=== PATIENT | male | born 1930 | race Caucasian/White ===

== ENCOUNTER 2017-04-18 01:11 | Observation (INO) | payer OTHER ==
--- NOTE | 2017-04-18 01:35 | EDPHY ---
H & P HPI/ROS: HPI CHIEF COMPLAINT: Dementia, having trouble keeping him in the house. HISTORY OF PRESENT ILLNESS: Patient very pleasant 86-year-old male, history of dementia, resides in a private residence with his , EMS was called to his residence as she was having a hard time keeping him in the house and from leaving. She thought that he may leave and get injured. She is not come to the emergency room however history is obtained by EMS. EMS reports he has no complaints. He has not been sick recently. He does have dementia. It sounds like the is having hard time controlling his behavior at home. There has not been any physical altercations. It is more of him leaving the house in the middle the night. Past Medical History: Ventricular tachycardia due to vaso spasm, syncope, AICD , dementia Past Surgical History: AICD Social History: Resides in a private residence with his . Family History: Noncontributory ROS REVIEW OF SYSTEMS: A comprehensive 10 point review of systems is otherwise negative aside from elements mentioned in the history of present illness. Exam Constitutional appears well nontoxic, no acute distress, stable vital signs, pleasant, triage nursing summary reviewed, vital signs reviewed, awake/alert. Eyes normal conjunctivae and sclera, EOMI, PERRLA. HENT normal inspection, atraumatic, moist mucus membranes, no epistaxis, neck supple/ no meningismus, no raccoon eyes. Respiratory clear to auscultation bilaterally, normal breath sounds, no respiratory distress, no wheezing. Cardiovascular rate normal, regular rhythm, no murmur, no edema, distal pulses normal. Gastrointestinal soft, non-tender, no rebound, no guarding, normal bowel sounds, no distension, no pulsatile mass. Genitourinary no CVA tenderness. Musculoskeletal no midline vertebral tenderness, full range of motion, no calf swelling, no tenderness of extremities, no meningismus, good pulses, neurovascularly intact. Skin pink, warm, & dry, no rash, skin atraumatic. Neurologic alert and orient x1, demented, moves all 4 extremities equally, motor intact, sensory intact, CN II-XII intact, normal cerebellar, normal vision , normal speech. Psychiatric normal mood/affect. Heme/Lymph/Immune no lymphadenopathy. Differential Diagnosis: Includes but is not limited to in a particular order dementia, behavioral issues, cognitive decline, electrolyte disturbance Medical Decision Making: Plan for this patient basic blood work, check a re- evaluate. Re-evaluation: 0214: Blood work has been reviewed is unremarkable. Electrolytes are appropriate. Patient acting appropriately follows, I commands. He is not aggressive. He does appear pleasantly demented. I will speak with his about possibly being discharged home unless she has other concerns. Have not found anything acute going on. Patient has what appears to be progressive dementia. 0248: Spoke with Dr. Delacruz, their primary care doctor. We discussed the case at length. We thought maybe a better idea increased his Zyprexa 5 mg at night. This may help to sleep. He was just recently started on Zyprexa I believe 2.5 mg. Patient will go home with the feels comfortable going home. His blood work is unremarkable. I will discuss length with her about returning home with him. Additionally discussed about Zyprexa. 0300: has come to the emergency room. She reports to me that she has a great deal difficulty controlling his behavior and he constantly wants to leave the house. She does not feel comfortable taking him home. Additionally the patient is not aware who she is. The reports that she thinks maybe this started Zyprexa is actually causing the change in his mental status. She is not sure if that we should increase his dose of Zyprexa. Will admit to the hospitalist service as she does not feel comfortable taking him home. Source: Patient, EMS - Personal History Tetanus Vaccine Date: <10 YRS - Medical/Surgical History Hx Asthma: No Hx Chronic Respiratory Disease: No Hx Diabetes: No Hx Cardiac Disease: Yes Hx Renal Disease: No Hx Cirrhosis: No Hx Alcoholism: No Hx HIV/AIDS: No Hx Splenectomy or Spleen Trauma: No Other PMH: Past medical history: Syncope, ventricular tachycardia, idiopathic anaphylaxis - Social History Smoking Status: Former smoker Constitutional: Initial Vital Signs Temperature (C) 36.4 C 04/18/17 01:17 Heart Rate 70 04/18/17 01:17 Respiratory Rate 16 04/18/17 01:17 Blood Pressure 157/93 H 04/18/17 01:17 O2 Sat (%) 94 04/18/17 01:17 O2 Delivery Mode Room Air Allergies/Adverse Reactions: latex [Latex] Allergy (Severe, Verified 04/18/17 01:19) Rash adhesive Allergy (Verified 01/16/18 01:19) Home Medications: Medication Instructions Recorded Tamsulosin HCl [Flomax 0.4 MG (*)] 0.4 mg PO DAILY 08/10/11 Aspirin [Aspirin 325 mg (*)] 325 mg PO DAILY 03/17/12 Multivitamins [Multivitamin (*)] 1 tab PO DAILY 03/17/12 Cholecalciferol Vit D3 [Vitamin D3 1,000 units PO DAILY 04/18/17 (*)] Herbals/Supplements -Info Only 1 ea PO DAILY 04/18/17 LORazepam [Ativan (*)] 0.5 mg PO DAILY PRN 04/18/17 Levothyroxine [Synthroid 88 mcg 88 mcg PO DAILY06 04/18/17 (*)] OLANZapine [Zyprexa] 5 mg PO HS #60 tablet 04/18/17 Venlafaxine Xr [Effexor Xr 37.5MG 37.5 mg PO BIDMEAL 04/18/17 (*)] Medical Decision Making - Data Points Laboratory Results: Laboratory Results 04/18/17 01:25 04/18/17 01:25 04/18/17 01:45 TSH 2.100 uIU/mL uIU/mL (0.465-4.680) Medications Given: Aspirin (Aspirin) 325 mg PO DAILY [facility] Stop: 10/15/17 12:29 Last Admin: 04/18/17 13:51 Dose: 325 mg Cholecalciferol (Vitamin D) 1,000 units PO DAILY [facility] Stop: 10/15/17 12:29 Last Admin: 04/18/17 13:51 Dose: 1,000 units Levothyroxine Sodium (Synthroid) 88 mcg PO DAILY06 [facility] Stop: 10/15/17 12:29 Last Admin: 04/18/17 13:51 Dose: 88 mcg Quetiapine Fumarate (Seroquel) 25 mg PO HS [facility] Stop: 10/15/17 20:59 Last Admin: 04/18/17 20:40 Dose: 25 mg Venlafaxine HCl (Effexor Xr) 37.5 mg PO BIDMEAL [facility] Stop: 10/15/17 17:59 Last Admin: 04/18/17 17:31 Dose: 37.5 mg Discontinued Medications Lorazepam (Ativan) 1 mg PO ONCE ONE Stop: 04/18/17 03:22 Last Admin: 04/18/17 03:37 Dose: 1 mg Departure - Departure Disposition: Home, Routine, Self-Care Clinical Impression: Dementia Qualifiers: Dementia type: unspecified type Dementia behavioral disturbance: without behavioral disturbance Qualified Code(s): F03.90 - Unspecified dementia without behavioral disturbance Condition: Good
[2017-04-18 01:37] LABS: PLATELET COUNT 214 10^3/uL (150-400)
[2017-04-18] MEDS ORDERED: ONDANSETRON 4 MG/2 ML VIAL IVP PRN (03:15)
[2017-04-18] MEDS ORDERED: ACETAMINOPHEN 325 MG TAB PO PRN (03:15)
[2017-04-18] MEDS ORDERED: LORazepam 1 MG TAB PO ONE (03:21)
[2017-04-18] MEDS ORDERED: LORazepam 1 MG TAB ONE (03:25)
--- NOTE | 2017-04-18 08:00 | GHP ---
[f rep st] HISTORY AND PHYSICAL DATE OF ADMISSION: 04/18/2017 SOURCE: Patient with significantly advanced dementia. He is unable to provide a significant history . Case is discussed with the ED provider. Prior to admission, the patient's had left for the e vening before I could arrive to the ER at bedside. CHIEF COMPLAINT: Dementia. HISTORY OF PRESENT ILLNESS: This is a very pleasant 86-year-old gentleman, who presents to the emerg ency department after his called 911. This evening, patient had some slightly increased confusi on, agitation and was trying to leave the house in the low freezing temperatures. The patient is in general of a larger stature and his is just 5 feet 4 inches. She had concerns that she is not a ble to maintain his safety and so patient was brought to the emergency department for further evaluat ion. The patient had progressively declining status with his dementia. 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 He was unable to identify his at bedside and called her the flight simulator teacher . He was able to report the name of his accurately as Georgette but is not able to identify her per the ED provider. The patient without any known recent illnesses. The patient has not had any a gitation since arrival to the emergency department. He has not attempted to leave the facility. He does ask multiple questions and is quite paranoid regarding the facility services and intentions. De spite being advised he is in the hospital, he does not recall the information for but a few moments. In the emergency department, ED provider did discuss with PCP regarding patient's case. Patient had been recently started on the low-dose Zyprexa at nighttime. The patient's had feared that this had increased his agitation; however, he has had a progressive decline in the progress of his disease . He has not been violent, but has been more difficult to redirect, and is concerned that [facility] home is no longer a viable option for the patient's safety. REVIEW OF SYSTEMS: The patient denies despite a thorough review of 10 systems. The patient does wea r glasses and again is not available at bedside for further discussion. ALLERGIES: Latex and adhesive. HOME MEDICATIONS: As per EMR, tamsulosin 0.4 mg p.o. daily, multivitamin 1 tab p.o. daily, levothyro xine 75 mcg p.o. daily, diltiazem 240 mg p.o. daily, Zyrtec 10 mg p.o. daily, calcium with vitamin D p.o. daily, aspirin 325 mg p.o. daily, Zyprexa 5 mg p.o. at nighttime. PAST MEDICAL HISTORY: Significant for dementia, history of ventricular tachycardia placement with th e ICD, and history of idiopathic anaphylaxis. PAST SURGICAL HISTORY: Significant for AICD placement. FAMILY HISTORY: Paternal grandmother with diabetes per the patient. SOCIAL HISTORY: Patient lives with his in a private home. No report of use of tobacco, drugs, or alcohol. CODE STATUS: Will need to be verified with the later in the morning. Given patient's significa nt dementia, he is unable to answer this question at this time. Will leave as a full code. PHYSICAL EXAMINATION: VITAL SIGNS: Upon arrival to the emergency department, blood pressure 157/93, heart rate 70, respiratory rate 16, O2 saturation 94% on room air with a temperature of 36.4. Curre nt vitals on the floor; blood pressure 178/104, heart rate 70, respiratory rate 16, O2 saturation 94% on room air with a temperature 36.7. Patient was evaluated in the emergency department before he wa s taken upstairs. GENERAL: No acute distress. Very pleasant, elderly, frail gentleman with noted m jeramy deficits, sitting up comfortably in the [facility]. HEAD: Normocephalic, atraumatic neck. EYES: Extraocular muscles are intact. Pupils equal, round, slightly decreased reactivity to light bilater ally but symmetric. No scleral icterus or conjunctival injection. ENT: Mucous membranes appear asuncion st. No pharyngeal erythema or exudates. NECK: Supple. Trachea midline. CV: Regular rate and rhy thm. Slightly distant heart sounds, slightly bradycardic. No rubs or gallops appreciated. RESPIRAT ORY: Unlabored breathing. Lungs are clear to auscultation bilaterally. No wheezes, rales, or rhonc hi appreciated. ABDOMEN: Positive bowel sounds. Soft, nontender to palpation. No rebound, guardin g, or masses appreciated. : No suprapubic tenderness to palpation. No CVA tenderness. No Garcia catheter in place. EXTREMITIES: Patient without any cyanosis, clubbing, or edema appreciated. 2+ p edal pulses bilaterally and symmetric. NEURO: Grossly nonfocal. No facial drooping. The patient's memory is significantly declined. He believes it is 1977 and he is unable to advise what kind of fa cility he is in currently. [place] and he is unsure of the intentions of the facility and staff. PSYCH: Patient is pleasant, very cooperative, but again memory is declined and the patient is slightly paranoid but not aggressive. LABORATORY STUDIES: WBC 6.53, H and H of 13.0 and 39.1, MCV of 93.5, platelet count is 214. No band s. No left shift. Sodium is 146, potassium 4.4, chloride 107, CO2 is 28, anion gap 11, BUN 17, creatinine is 1.1. GFR greater than 60. Glucose 92, calcium 9.2. UA specific gravity 1.011 with a pH of 5.0, otherwise negative. ASSESSMENT AND PLAN: A very pleasant 86-year-old gentleman with history of progressive and advanced dementia, who now presents with concerns for accelerated changes in his dementia. 1. Dementia of unknown type. Patient has been cooperative and pleasant [facility]. Patient does reside in a home with his independently. The patient has been a little bit more difficult to redirect in the last several days despite use of Zyprexa which was ini tiated by his PCP. The patient at this time without any agitation and is cooperative. We will hold off on advancing his Zyprexa. If needed, we will increase the dose and monitor its effectiveness. Kevin hutchinson's was concerned that his agitation had increased after he received a dose of Zyprexa, but I suspect that this is progression of his disease more so than response to antipsychotic. 2. Anemia, likely of chronic disease. Patient without any evidence of active bleeding. No interven tions at this time or further evaluation pending further response from PCP. 3. Hypernatremia is minimally elevated, likely related to some hypovolemia. Patient will be encoura ged to tolerate oral intake and hydrate. We will plan to repeat BMP. 4. Benign prostatic hypertrophy. Continue tamsulosin. 5. Hypothyroidism. Check a TSH with morning labs and continue patient's levothyroxine. 6. Fluid, electrolyte, nutrition. Regular diet as tolerated. Electrolytes will be monitored and re placed as needed. No IV fluids at this time. 7. Prophylaxis. SCDs. Holding anticoagulation at this time in anticipation of likely a short hospi mohan stay. We will need to reassess if patient should stay additional days. 8. Code status. Will remain is full at this time. Patient's has left for the evening and unab le to verify through the patient. Further discussion will be needed as per day team. DISPOSITION: Patient will be admitted to observation on the medical floor at this time. /[id number]/MODL
--- NOTE | 2017-04-18 12:02 | ASMTCMCOM ---
CM Note CM Note Notes: Chart reviewed. Met with patient and his and daughter. They have already arranged for [facility] to come and see them to arrange respite care so they can sort out his medications and hopefully be able to help with his sundowning and wandering. I will also provide them with copy of some [facility] contacts for benefits. Per therapies he has no physical needs at this time. CM to follow. Date Signed: 04/18/2017 12:02 PM Electronically Signed By:Karen Espinal RN
--- NOTE | 2017-04-18 13:26 | HOSPPROG ---
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 35 minutes spent w family Objective: Vital Signs Temp Pulse Resp BP Pulse Ox 36.5 C 61 16 126/85 H 95 04/18/17 12:00 04/18/17 12:00 04/18/17 12:00 04/18/17 12:00 04/18/17 12:00 - Physical Exam Constitutional: no apparent distress, appears nourished Eyes: PERRL, anicteric sclera Ears, Nose, Mouth, Throat: moist mucous membranes, hearing normal Cardiovascular: regular rate and rhythym, no murmur, rub, or gallop Respiratory: no respiratory distress, no rales or rhonchi Gastrointestinal: normoactive bowel sounds, soft, non-tender abdomen Genitourinary: No garcia in urethra Skin: warm, normal color Musculoskeletal: full muscle strength, no muscle tenderness Neurologic: AAOx3 Psychiatric: interacting appropriately, not anxious Lymph, Heme, Immunologic: no cervical LAD ICD10 Worksheet Patient Problems: Problems Problem Status Onset Dementia Acute Allergic reaction Acute Arrhythmia Acute Syncope Acute
[2017-04-18] MEDS: CHOLECALCIFEROL VIT D3 1,000 UNITS TAB PO SCH (13:51)
[2017-04-18] MEDS: ASPIRIN 325 MG TAB PO SCH (13:51)
[2017-04-18] MEDS: LEVOTHYROXINE 88 MCG TAB PO SCH (13:51)
[2017-04-18] MEDS: VENLAFAXINE XR 37.5 MG CAP PO SCH (17:31)
--- NOTE | 2017-04-18 17:43 | ASMTCMCOM ---
CM Note CM Note Notes: Patient is to dc to [facility] tomorrow. Dr. Carson filled out paperwork and this was faxed to [facility], (confimed reciept) the most was deferred as the family has DELFINO and advanced directives. [facility]'s number is [phone]. The patient had an evaluation today. He has been accepted. CM available should ather needs arise. Date Signed: 04/18/2017 05:42 PM Electronically Signed By:Karen Espinal RN
[2017-04-18] MEDS ORDERED: QUEtiapine FUMARATE 25 MG TAB PO SCH (21:00)
[2017-04-19] MEDS: LEVOTHYROXINE 88 MCG TAB PO SCH (06:23)
[2017-04-19 07:37] VITALS: PULSE 73; RESP 18; TEMP 98; O2SAT 92
[2017-04-19 07:49] VITALS: BP 157/85
[2017-04-19] MEDS: ASPIRIN 325 MG TAB PO SCH (08:45)
[2017-04-19] MEDS: CHOLECALCIFEROL VIT D3 1,000 UNITS TAB PO SCH (08:45)
[2017-04-19] MEDS: VENLAFAXINE XR 37.5 MG CAP PO SCH (08:45)
[2017-04-19] MEDS ORDERED: MULTIVITAMINS 1 EACH TAB PO SCH (09:00)
[2017-04-19] MEDS ORDERED: Herbals/Supplements -Info Only PO SCH (09:00)
[2017-04-19] MEDS ORDERED: ENOXAPARIN 40 MG/0.4 ML SYR SC SCH (09:00)
[2017-04-19] MEDS ORDERED: TAMSULOSIN HCL 0.4 MG CAP PO SCH (09:00)
--- NOTE | 2017-04-19 13:39 | HOSPPROG ---
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 started on seroquel overnight Objective: Vital Signs Temp Pulse Resp BP Pulse Ox 36.6 C 73 18 157/85 H 92 04/19/17 07:34 04/19/17 07:34 04/19/17 07:34 04/19/17 07:34 04/19/17 07:34 04/18/17 04/19/17 04/20/17 05:59 05:59 05:59 Intake Total 100 Balance 100 - Physical Exam Constitutional: no apparent distress, appears nourished Eyes: PERRL, anicteric sclera Ears, Nose, Mouth, Throat: moist mucous membranes, hearing normal Cardiovascular: regular rate and rhythym, no murmur, rub, or gallop Respiratory: no respiratory distress, no rales or rhonchi Gastrointestinal: normoactive bowel sounds, soft, non-tender abdomen Genitourinary: no bladder fullness, No garcia in urethra Skin: warm, normal color Musculoskeletal: full muscle strength, no muscle tenderness Neurologic: AAOx3 Psychiatric: interacting appropriately ICD10 Worksheet Patient Problems: Problems Problem Status Onset Dementia Acute Allergic reaction Acute Arrhythmia Acute Syncope Acute
--- NOTE | 2017-04-19 13:42 | PDIAF ---
- Diagnosis Diagnosis: dementia w psychosis - Medication Management Discharge Medications: Medications to Continue on Transfer Tamsulosin HCl [Flomax 0.4 MG (*)] 0.4 mg PO DAILY 08/10/11 [Last Taken 04/17/17 ] Aspirin [Aspirin 325 mg (*)] 325 mg PO DAILY 03/17/12 [Last Taken 04/17/17] Multivitamins [Multivitamin (*)] 1 tab PO DAILY 03/17/12 [Last Taken 04/17/17] Cholecalciferol Vit D3 [Vitamin D3 (*)] 1,000 units PO DAILY 04/18/17 [Last Taken 04/17/17] Herbals/Supplements -Info Only 1 ea PO DAILY 04/18/17 [Last Taken Unknown] Levothyroxine [Synthroid 88 mcg (*)] 88 mcg PO DAILY06 04/18/17 [Last Taken ] Venlafaxine Xr [Effexor Xr 37.5MG (*)] 37.5 mg PO BIDMEAL 04/18/17 [Last Taken 04/17/17 09:00] QUEtiapine FUMARATE [Seroquel 25 mg (*)] 25 mg PO HS tab 04/19/17 [Last Taken Unknown] Discharge Medications: Refer to the Discharge Home Medication list for PRN reason. - Orders Services needed: Registered Nurse, Certified Fire Loss Prevention Engineer, Master Nipple Maker , Physical Therapy, Occupational Therapy Isolation Type: None Diet Recommendation: no restrictions on diet Diet Texture: Regular Texture Diet - Follow Up Care Current Providers and Referrals: Roc Herrera MD [Primary Care Provider] - As per Instructions
--- NOTE | 2017-04-19 14:33 | ASMTCMCOM ---
CM Note CM Note Notes: Spoke w/MD, can dc today. CM called , she is going to [facility] to sign final paperwork then come to bead picker . Anitha at [place] notified and is ok with pt coming today. DC Plan: Assisted Living- [facility] Date Signed: 04/19/2017 02:32 PM Electronically Signed By:Tawanna Rushing RN
--- NOTE | 2017-04-19 15:07 | GDS ---
[f rep st] DISCHARGE SUMMARY DISCHARGE DIAGNOSES: 1. Dementia with psychotic features. 2. Dementia. 3. BPH. 4. History of ventricular tachycardia with implantable cardioverter defibrillator. HOSPITAL COURSE: Please see admission history and physical by Dr. Summer Johnston. The patient is a pleasant gentleman who is 86 years old. He has a history of dementia. He has been becoming a bit more confused with delusions such as being a gas maker and needing to call [employer] to schedule his flights. He had been started on Zyprexa with his family's concern that this was escalating behavior to cause abner im to become a bit aggressive toward his although never frankly violent. He was admitted. Zypr exa was held, started on Seroquel with which he has done well after 1 dose. The patient when I saw abner samuels today was still asking for the [employer] phone number to schedule his flight. He was discharged to [facility] Sero[facility]. /[id number]/MODL
--- NOTE | 2017-04-20 10:05 | ASDISCHSUM ---
Discharge Information Plan Status:Assisted Living Medically Cleared to Leave: Discharge Date:04/19/2017 03:10 PM CM D/C Disposition:Assisted Living ADT D/C Disposition:Intermediate Care Facility Projected Discharge Date:04/19/2017 03:10 PM Transportation at D/C:Family Discharge Delay Reason: Follow-Up Date:04/19/2017 03:10 PM Discharge Slot: Final Diagnosis: Placement Information Patient Contact Information Contact Name:CHRISS Relationship: Address:[address] City:[place] Alternate Phone: State/Zip Code:[place] [address] Email: Financial Information Financial Class: Primary Plan Desc:MEDICARE OUTPATIENT Primary Plan Number:[id number] Secondary Plan Desc:[facility] Secondary Plan Number:[id number] Assessment Information [facility] CM Progress Note CM Note CM Note Notes: Chart reviewed. Met with patient and his and daughter. They have already arranged for [facility] to come and see them to arrange respite care so they can sort out his medications and hopefully be able to help with his sundowning and wandering. I will also provide them with copy of some [place] contacts for benefits. Per therapies he has no physical needs at this time. CM to follow. Date Signed: 04/18/2017 12:02 PM Electronically Signed By:Karen Espinal RN [facility] CM Progress Note CM Note CM Note Notes: Patient is to dc to [facility] tomorrow. Dr. Carson filled out paperwork and this was faxed to [facility], (confimed reciept) the most was deferred as the family has DELFINO and advanced directives. [facility]'s number is [phone]. The patient had an evaluation today. He has been accepted. CM available should ather needs arise. Date Signed: 04/18/2017 05:42 PM Electronically Signed By:Karen Espinal RN [facility] CM Progress Note CM Note CM Note Notes: Spoke w/, can dc today. CM called , she is going to [facility] to sign final paperwork then come to pick up attendant . Anitha at [place] notified and is ok with pt coming today. DC Plan: Assisted Living- Date Signed: 04/19/2017 02:32 PM Electronically Signed By:Tawanna Rushing RN Case Management Discharge Plan Note Case Management Discharge Discharge Order Complete? Answers: Yes Patient to Obtain Answers: Other Notes: [facility] [place] Medications Transportation Arranged Answers: Family/Friends Faxed Final Orders Answers: Yes Family Notified Answers: Yes Discharge Comments Notes: Notified Anitha at [facility], will bring MDPOA paperwork. to discuss with MS if pt needs therapies, she wants him to get settled in first. Date Signed: 04/19/2017 03:01 PM Electronically Signed By:Tawanna Rushing RN Intervention Information Intervention Type:*SQUIRES-Signed Date of Service:04/18/2017 10:14 AM Patient Type:Observation Staff Member:Nina Johnson Hours: Discipline: Severity: Comment:
== END 2017-04-19 15:10 ==
LOC: F3E 04:05
PROVIDERS: ADMIT Family Medicine; ATTEND Internal Medicine
DX: F03.91 Unspecified dementia, unspecified severity, with behavioral disturbance (principal); R41.0 Disorientation, unspecified; I10 Essential (primary) hypertension; N40.0 Benign prostatic hyperplasia without lower urinary tract symptoms; E03.9 Hypothyroidism, unspecified; D64.9 Anemia, unspecified; E87.0 Hyperosmolality and hypernatremia; Z79.82 Long term (current) use of aspirin; Z87.891 Personal history of nicotine dependence; Z95.810 Presence of automatic (implantable) cardiac defibrillator; Z91.040 Latex allergy status
CPT/HCPCS: 97161; 99285; G0378; G8978; G8979; G8980; J1650

== ENCOUNTER 2017-10-10 09:34 | Inpatient (IN) | payer OTHER ==
[2017-10-10] MEDS ORDERED: NS 1,000 ML IV ONE ×2 (09:51→11:32)
[2017-10-10] MEDS ORDERED: ACETAMINOPHEN 500 MG TAB ONE (09:57)
--- NOTE | 2017-10-10 10:02 | EDPHY ---
H & P Time Seen by Provider: 10/10/17 09:36 HPI/ROS: CHIEF COMPLAINT: Confusion, weakness HISTORY OF PRESENT ILLNESS: 87-year-old male presents to the emergency department by ambulance with confusion weakness. The patient is a resident at [facility] for last 4 or 5 months and today he was acting a bit altered and refused to have his closed changed which is not like him. They apparently tried to get him up to walk mm he was very wobbly and weak and required assistance. The patient states that he feels tired like he wants to take a nap but otherwise has no complaints of pain. He denies pain in his chest or difficulty breathing. Denies abdominal pain. Denies neck or back pain. Denies pain in upper or lower extremities. No reported trauma or fall. REVIEW OF SYSTEMS: Constitutional: No fever, no chills. Eyes: No double or blurry vision. ENT: No sore throat. Respiratory: No cough, no shortness of breath. Cardiac: No chest pain. Gastrointestinal: No abdominal pain, vomiting or diarrhea. Genitourinary: No dysuria. Musculoskeletal: No neck or back pain. Skin: No rashes. Neurological: No headache. 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 Febrile with a temperature 37.8 degrees, heart rate 90, blood pressure 105/50 Eyes: Pupils equal and round. Extraocular motions are all intact. ENT: Mouth: Mucous membranes moist. Respiratory: No wheezing, rhonchi, or rales, lungs are clear to auscultation. Cardiovascular: Regular rate and rhythm. Gastrointestinal: Abdomen is soft and nontender, no masses, no rebound or guarding, bowel sounds normal. Neurological: Alert and oriented x 2 confused on date and time, cranial nerves II through XII grossly intact Skin: Warm and dry, no rashes. Musculoskeletal: Nontender to palpate along the cervical, thoracic or lumbar spine. Neck is supple. Extremities: Full range of motion and no peripheral edema. Psychiatric: Patient is oriented X 3, there is no agitation. Constitutional: Initial Vital Signs Temperature (C) 37.8 C 10/10/17 09:34 Heart Rate 91 10/10/17 09:34 Respiratory Rate 24 H 10/10/17 09:34 Blood Pressure 103/55 L 10/10/17 09:34 O2 Sat (%) 94 10/10/17 09:34 O2 Delivery Mode Room Air Allergies/Adverse Reactions: latex [Latex] Allergy (Severe, Verified 10/10/17 09:51) Rash adhesive Allergy (Verified 10/10/17 09:51) Home Medications: Medication Instructions Recorded Tamsulosin HCl [Flomax 0.4 MG (*)] 0.4 mg PO DAILY 08/10/11 Aspirin [Aspirin 325 mg (*)] 325 mg PO DAILY 03/17/12 Multivitamins [Multivitamin (*)] 1 tab PO DAILY 03/17/12 Cholecalciferol Vit D3 [Vitamin D3 1,000 units PO DAILY 04/18/17 (*)] Herbals/Supplements -Info Only 1 ea PO DAILY 04/18/17 Levothyroxine [Synthroid 88 mcg 88 mcg PO DAILY06 04/18/17 (*)] Venlafaxine Xr [Effexor Xr 37.5MG 37.5 mg PO BIDMEAL 04/18/17 (*)] QUEtiapine FUMARATE [Seroquel 25 25 mg PO HS tab 04/19/17 mg (*)] Epipen 0.3 MG 10/10/17 Medical Decision Making - Diagnostics Imaging Results: Imaging Impressions Chest X-Ray 10/10/17 09:51 Impression: Left basilar diskoid subsegmental atelectasis. Head CT 10/10/17 09:51 Impression: 1. No acute intracranial findings. 2. Diffuse cerebral atrophy with periventricular and subcortical low attenuation consistent with chronic microvascular ischemic gliosis. Findings discussed with LIT FALCON 10/10/2017 at 10:58. Imaging: Discussed imaging studies w/ house calls nurse Radiologist, I viewed and interpreted images myself ED Course/Re-evaluation: 87-year-old male presents to the emergency department by ambulance with fever and altered mental status. Laboratory studies reveal elevated white blood cell count of over 12,000. He has a creatinine 1.6 with his baseline being 1.1. Elevated troponin at 0.14. EKG reveals normal sinus rhythm. Urinalysis reveals large amount of white blood cells and red blood cells with 4 + bacteria. This was a cath urine specimen. Urine cultures pending. The patient was given 1 g of Tylenol p.o. For his temperature 37.8 degrees. Repeat temperature was 37 degrees. Patient was also given 1 g of IV ceftriaxone to treat urinary tract infection. Chest x-ray reveals no evidence of pneumonia. Patient will be admitted to the hospitalist to the PCU floor given his elevated troponin. The patient was hypotensive in the emergency department with blood pressures running 100/50s. Heart rate of 72. He received IV normal saline. Lactate was normal at 1.3. The case was discussed with Dr. Yinka Harley, secondary supervising physician, who did not directly evaluate the patient but agrees with treatment and plan. CT imaging of the brain was normal. This was reported by Dr. Mike De Leon. Differential Diagnosis: Weakness including but not limited to electrolyte abnormality, depression, anxiety, CVA, spinal cord abnormality, and infectious causes. - Data Points Laboratory Results: Laboratory Results 10/10/17 09:45 10/10/17 09:45 10/10/17 10/10/17 10/10/17 11:05 10:29 10:20 WBC RBC Hgb Hct MCV MCH MCHC RDW Plt Count MPV Neut % (Auto) Lymph % (Auto) [place] % (Auto) Eos % (Auto) Baso % (Auto) Nucleat RBC Rel Count Absolute Neuts (auto) Absolute Lymphs (auto) Absolute Monos (auto) Absolute Eos (auto) Absolute Basos (auto) Absolute Nucleated RBC Immature Gran % Immature Gran # RBC/WBC/PLT Morphology Platelet Estimate VBG Lactic Acid 1.3 mmol/L mmol/L (0.7-2.1) Sodium Potassium Chloride Carbon Dioxide Anion Gap BUN Creatinine Estimated GFR Glucose Calcium POC Troponin I 0.13 ng/mL H ng/mL (0.00-0.08) Troponin I Urine Color GORDON Urine Appearance MODERATELY TURBID Urine pH 5.0 (5.0-7.5) Ur Specific [place] 1.017 (1.002-1.030) Urine Protein 2+ H (NEGATIVE) Urine Ketones TRACE H (NEGATIVE) Urine Blood 2+ H (NEGATIVE) Urine Nitrate NEGATIVE (NEGATIVE) Urine Bilirubin NEGATIVE (NEGATIVE) Urine Urobilinogen NEGATIVE EU EU (0.2-1.0) Ur Leukocyte Esterase 3+ H (NEGATIVE) Urine RBC 25-50 /hpf H /hpf (0-3) Urine WBC 50-182 /hpf H /hpf (0-3) Ur Epithelial Cells TRACE /lpf /lpf (NONE-1+) Urine Bacteria 4+ /hpf H /hpf (NONE SEEN) Urine Mucus 2+ /lpf H /lpf (NONE-1+) Urine Glucose NEGATIVE (NEGATIVE) 10/10/17 10/10/17 09:45 09:45 WBC 12.08 10^3/uL H 10^3/uL (3.80-9.50) RBC 4.09 10^6/uL L 10^6/uL (4.40-6.38) Hgb 12.8 g/dL L g/dL (13.7-17.5) Hct 37.5 % L % (40.0-51.0) MCV 91.7 fL fL (81.5-99.8) MCH 31.3 pg pg (27.9-34.1) MCHC 34.1 g/dL g/dL (32.4-36.7) RDW 14.1 % % (11.5-15.2) Plt Count 130 10^3/uL L 10^3/uL (150-400) MPV 10.0 fL fL (8.7-11.7) Neut % (Auto) 90.1 % H % (39.3-74.2) Lymph % (Auto) 2.9 % L % (15.0-45.0) [place] % (Auto) 5.9 % % (4.5-13.0) Eos % (Auto) 0.0 % L % (0.6-7.6) Baso % (Auto) 0.1 % L % (0.3-1.7) Nucleat RBC Rel Count 0.0 % % (0.0-0.2) Absolute Neuts (auto) 10.88 10^3/uL H 10^3/uL (1.70-6.50) Absolute Lymphs (auto) 0.35 10^3/uL L 10^3/uL (1.00-3.00) Absolute Monos (auto) 0.71 10^3/uL 10^3/uL (0.30-0.80) Absolute Eos (auto) 0.00 10^3/uL L 10^3/uL (0.03-0.40) Absolute Basos (auto) 0.01 10^3/uL L 10^3/uL (0.02-0.10) Absolute Nucleated RBC 0.00 10^3/uL 10^3/uL (0-0.01) Immature Gran % 1.0 % % (0.0-1.1) Immature Gran # 0.12 10^3/uL H 10^3/uL (0.00-0.10) RBC/WBC/PLT Morphology TNP Platelet Estimate TNP VBG Lactic Acid Sodium 135 mEq/L mEq/L (135-145) Potassium 3.9 mEq/L mEq/L (3.3-5.0) Chloride 103 mEq/L mEq/L (97-110) Carbon Dioxide 22 mEq/l mEq/l (22-31) Anion Gap 10 mEq/L mEq/L (8-16) BUN 40 mg/dL H mg/dL (7-23) Creatinine 1.6 mg/dL H mg/dL (0.7-1.3) Estimated GFR 41 Glucose 123 mg/dL H mg/dL (70-100) Calcium 8.6 mg/dL mg/dL (8.5-10.4) POC Troponin I Troponin I 0.142 ng/mL H ng/mL (0.000-0.034) Urine Color Urine Appearance Urine pH Ur Specific [place] Urine Protein Urine Ketones Urine Blood Urine Nitrate Urine Bilirubin Urine Urobilinogen Ur Leukocyte Esterase Urine RBC Urine WBC Ur Epithelial Cells Urine Bacteria Urine Mucus Urine Glucose Medications Given: Discontinued Medications Acetaminophen (Tylenol) 1,000 mg PO EDNOW ONE Stop: 10/10/17 10:10 Last Admin: 10/10/17 10:11 Dose: 1,000 mg Sodium Chloride (Ns) 1,000 mls @ 0 mls/hr IV ONCE ONE PRN Reason: Wide Open Stop: 10/10/17 09:52 Last Admin: 10/10/17 10:25 Dose: 1,000 mls Ceftriaxone Sodium/Dextrose (Rocephin 1 Gm (Premix)) 50 mls @ 100 mls/hr IV EDNOW ONE PRN Reason: Protocol Stop: 10/10/17 12:00 Last Admin: 10/10/17 11:43 Dose: 50 mls Sodium Chloride (Ns) 1,000 mls @ 0 mls/hr IV ONCE ONE PRN Reason: Wide Open Stop: 10/10/17 11:33 Last Admin: 10/10/17 11:39 Dose: 1,000 mls Point of Care Test Results: Chemistry 10/10/17 10:29 POC Troponin I 0.13 ng/mL H ng/mL (0.00-0.08) Departure - Departure Disposition: [facility] Inpatient Acute Clinical Impression: Elevated troponin Urinary tract infection Qualifiers: Urinary tract infection type: site unspecified Hematuria presence: without hematuria Qualified Code(s): N39.0 - Urinary tract infection, site not specified Sepsis Qualifiers: Sepsis type: sepsis due to unspecified organism Qualified Code(s): A41.9 - Sepsis, unspecified organism Condition: Fair
[2017-10-10 10:09] LABS: PLATELET COUNT 130 10^3/uL (150-400)
[2017-10-10] MEDS ORDERED: ACETAMINOPHEN 500 MG TAB PO ONE (10:09)
--- NOTE | 2017-10-10 10:17 | CPEKG ---
Heart Rate: 84 RR Interval: 714 P-R Interval: 204 QRSD Interval: 88 QT Interval: 404 QTC Interval: 478 P [place]: 56 QRS [place]: -3 T Wave [place]: 50 EKG Severity - BORDERLINE ECG - EKG Impression: SINUS RHYTHM EKG Impression: LOW VOLTAGE IN FRONTAL LEADS EKG Impression: BORDERLINE PROLONGED QT INTERVAL Electronically Signed By: Yinka Harley 10-Oct-2017 10:34:36
[2017-10-10] MEDS ORDERED: PROMETHAZINE HCL 25 MG/ML INJ IVP PRN (12:23)
[2017-10-10] MEDS ORDERED: oxyCODONE IR 5 MG TAB PO PRN (12:23)
[2017-10-10] MEDS ORDERED: HYDROmorphONE/DILAUDID 1 MG/ML INJ IVP PRN (12:23)
[2017-10-10] MEDS ORDERED: ACETAMINOPHEN 325 MG TAB PO PRN (12:23)
[2017-10-10] MEDS ORDERED: ONDANSETRON DISINTEGRATING 4 MG TAB PO PRN (12:23)
[2017-10-10] MEDS ORDERED: ONDANSETRON 4 MG/2 ML VIAL IVP PRN (12:23)
--- NOTE | 2017-10-10 13:06 | PDGENHP ---
History and Physical - Chief Complaint increased confusion - History of Present Illness 87 yo M with PMH of fairly advanced dementia, idiopathic anaphylaxis presenting with increased confusion for the last 24 hours. Patients present at bedside provides entire history other than what obtained by chart review as patient is currently quite somnolent and essentially verbally unresponsive. notes that 3 days ago he was in his usual state of health, and she has not seen him since then. This morning at his living facility it was noted that he was not responding appropriately to questions and was not sure what to do when handed his morning medications. He also refused to get dressed which was out of character. His was called and patient was brought to hospital by 911. notes that at baseline he knows who everyone is, knows his name but is sometimes confused by context of what is happening--he has thought he has to get up and go to work at times, other times does not recognize where he is and thinks he is in a school. He does seem to recognize his home more than the assisted living facility. He does not drink enough at the facility per his , she feels they do not often offer him liquids and he will not go get them if not offered. She has also noted that over the last 2-3 weeks he has had a fairly abrupt decline in his function--he is not able to walk as well as usual, he has needed to use a walking stick and has been quite weak and less interactive. History Information - Allergies/Home Medication List Allergies/Adverse Reactions: latex [Latex] Allergy (Severe, Verified 10/10/17 09:51) Rash adhesive Allergy (Verified 10/10/17 09:51) Home Medications: Tamsulosin HCl [Flomax 0.4 MG (*)] 0.4 mg PO DAILY 08/10/11 [Last Taken 04/17/17 ] Aspirin [Aspirin 325 mg (*)] 325 mg PO DAILY 03/17/12 [Last Taken 04/17/17] Multivitamins [Multivitamin (*)] 1 tab PO DAILY 03/17/12 [Last Taken 04/17/17] Cholecalciferol Vit D3 [Vitamin D3 (*)] 1,000 units PO DAILY 04/18/17 [Last Taken 04/17/17] Herbals/Supplements -Info Only 1 ea PO DAILY 04/18/17 [Last Taken Unknown] Levothyroxine [Synthroid 88 mcg (*)] 88 mcg PO DAILY06 04/18/17 [Last Taken ] Venlafaxine Xr [Effexor Xr 37.5MG (*)] 37.5 mg PO BIDMEAL 04/18/17 [Last Taken 04/17/17 09:00] Epipen 0.3 MG 10/10/17 [Last Taken Unknown] I have personally reviewed and updated: family history, medical history, social history, surgical history - Past Medical History dementia Additional medical history: VT. BPH. idiopathic anaphylaxis - Surgical History Reports: pacemaker/AICD - Family History Positive for: non-pertinent - Social History Smoking Status: Former smoker Alcohol Use: None Drug Use: None Additional social history: resides at [facility]. Review of Systems Review of Systems: ROS: 10pt was reviewed & negative except for what was stated in HPI & below Physical Exam Physical Exam: Temp Pulse Resp BP Pulse Ox 36.8 C 79 18 106/60 92 10/10/17 12:12 10/10/17 12:12 10/10/17 12:12 10/10/17 12:12 10/10/17 12:12 Constitutional: no apparent distress, appears nourished Eyes: PERRL Ears, Nose, Mouth, Throat: ears appear normal, dry mucous membranes Cardiovascular: regular rate and rhythym, no murmur, rub, or gallop, No edema Respiratory: no respiratory distress, no rales or rhonchi Gastrointestinal: normoactive bowel sounds, soft, non-tender abdomen Genitourinary: no bladder fullness Skin: warm, normal color Musculoskeletal: no muscle tenderness, No asymmetric calves Neurologic: CN II-XII Intact, other (somnolent, minimally responsive, moves all 4 spontaneously) Psychiatric: not anxious, No interacting appropriately Lab Data & Imaging Review 10/10/17 09:45 10/10/17 09:45 WBC 12.08 10^3/uL (3.80-9.50) H 10/10/17 09:45 RBC 4.09 10^6/uL (4.40-6.38) L 10/10/17 09:45 Hgb 12.8 g/dL (13.7-17.5) L 10/10/17 09:45 Hct 37.5 % (40.0-51.0) L 10/10/17 09:45 MCV 91.7 fL (81.5-99.8) 10/10/17 09:45 MCH 31.3 pg (27.9-34.1) 10/10/17 09:45 MCHC 34.1 g/dL (32.4-36.7) 10/10/17 09:45 RDW 14.1 % (11.5-15.2) 10/10/17 09:45 Plt Count 130 10^3/uL (150-400) L 10/10/17 09:45 MPV 10.0 fL (8.7-11.7) 10/10/17 09:45 Neut % (Auto) 90.1 % (39.3-74.2) H 10/10/17 09:45 Lymph % (Auto) 2.9 % (15.0-45.0) L 10/10/17 09:45 [place] % (Auto) 5.9 % (4.5-13.0) 10/10/17 09:45 Eos % (Auto) 0.0 % (0.6-7.6) L 10/10/17 09:45 Baso % (Auto) 0.1 % (0.3-1.7) L 10/10/17 09:45 Nucleat RBC Rel Count 0.0 % (0.0-0.2) 10/10/17 09:45 Absolute Neuts (auto) 10.88 10^3/uL (1.70-6.50) H 10/10/17 09:45 Absolute Lymphs (auto) 0.35 10^3/uL (1.00-3.00) L 10/10/17 09:45 Absolute Monos (auto) 0.71 10^3/uL (0.30-0.80) 10/10/17 09:45 Absolute Eos (auto) 0.00 10^3/uL (0.03-0.40) L 10/10/17 09:45 Absolute Basos (auto) 0.01 10^3/uL (0.02-0.10) L 10/10/17 09:45 Absolute Nucleated RBC 0.00 10^3/uL (0-0.01) 10/10/17 09:45 Immature Gran % 1.0 % (0.0-1.1) 10/10/17 09:45 Immature Gran # 0.12 10^3/uL (0.00-0.10) H 10/10/17 09:45 RBC/WBC/PLT Morphology TNP 10/10/17 09:45 Platelet Estimate TNP 10/10/17 09:45 VBG Lactic Acid 1.3 mmol/L (0.7-2.1) 10/10/17 10:20 Sodium 135 mEq/L (135-145) 10/10/17 09:45 Potassium 3.9 mEq/L (3.3-5.0) 10/10/17 09:45 Chloride 103 mEq/L (97-110) 10/10/17 09:45 Carbon Dioxide 22 mEq/l (22-31) 10/10/17 09:45 Anion Gap 10 mEq/L (8-16) 10/10/17 09:45 BUN 40 mg/dL (7-23) H 10/10/17 09:45 Creatinine 1.6 mg/dL (0.7-1.3) H 10/10/17 09:45 Estimated GFR 41 10/10/17 09:45 Glucose 123 mg/dL (70-100) H 10/10/17 09:45 Calcium 8.6 mg/dL (8.5-10.4) 10/10/17 09:45 POC Troponin I 0.13 ng/mL (0.00-0.08) H 10/10/17 10:29 Troponin I 0.142 ng/mL (0.000-0.034) H 10/10/17 09:45 Urine Color GORDON 10/10/17 11:05 Urine Appearance MODERATELY TURBID 10/10/17 11:05 Urine pH 5.0 (5.0-7.5) 10/10/17 11:05 Ur Specific [place] 1.017 (1.002-1.030) 10/10/17 11:05 Urine Protein 2+ (NEGATIVE) H 10/10/17 11:05 Urine Ketones TRACE (NEGATIVE) H 10/10/17 11:05 Urine Blood 2+ (NEGATIVE) H 10/10/17 11:05 Urine Nitrate NEGATIVE (NEGATIVE) 10/10/17 11:05 Urine Bilirubin NEGATIVE (NEGATIVE) 10/10/17 11:05 Urine Urobilinogen NEGATIVE EU (0.2-1.0) 10/10/17 11:05 Ur Leukocyte Esterase 3+ (NEGATIVE) H 10/10/17 11:05 Urine RBC 25-50 /hpf (0-3) H 10/10/17 11:05 Urine WBC 50-182 /hpf (0-3) H 10/10/17 11:05 Ur Epithelial Cells TRACE /lpf (NONE-1+) 10/10/17 11:05 Urine Bacteria 4+ /hpf (NONE SEEN) H 10/10/17 11:05 Urine Mucus 2+ /lpf (NONE-1+) H 10/10/17 11:05 Urine Glucose NEGATIVE (NEGATIVE) 10/10/17 11:05 Visualized and Interpreted Chest x-ray results: Yes Chest X-Ray results: no infiltrate (left basilar atelectasis) Visualized and Interpreted imaging results: Yes Interpretation: head CT: negative for acute findings Visualized and Interpreted EKG results: Yes EKG Interpretation: Positive for: normal sinsus rhythm Assessment & Plan Assessment: 87 yo M with hx of dementia admitted with acute on chronic encephalopathy in setting of UTI and RONAL/dehydration # acute on chronic encephalopathy: at baseline with fairly advanced dementia that sounds as if it has been more acutely progressive recently admitted with decreased responsiveness and increased confusion from baseline. Suspect this is multifactorial with acute infectious process, dehydration contributing but also with progression of his dementia playing a role. # UTI: in setting of above, cultures pending, started on ctx and will continue for now pending culture data # ronal: in setting of ronal and dehydration, baseline creatinine of 1.1, currently up to 1.6. Will hydrate and trend overnight # leukocytosis: without other sirs criterial being met currently, likely due to UTI as above # anemia: mild and stable # IP status, will need > 48 hours stay for eval/mgmt of above Patient new to my care. Old records reviewed and summarized as above. Care plan reviewed with patients as above.
[2017-10-10] MEDS: NS 1,000 ML IV SCH (14:53)
[2017-10-10] MEDS ORDERED: ACETAMINOPHEN 650 MG SUPP PR PRN (15:03)
[2017-10-10] MEDS: QUEtiapine FUMARATE 100 MG TAB PO SCH (18:19)
[2017-10-10] MEDS: VENLAFAXINE XR 37.5 MG CAP PO SCH (18:19)
[2017-10-10] MEDS ORDERED: NS 500 ML IV ONE (23:02)
[2017-10-11] MEDS: NS 1,000 ML IV SCH ×2 (00:56→03:55)
[2017-10-11 04:23] LABS: PLATELET COUNT 100 10^3/uL (150-400)
[2017-10-11] MEDS: LEVOTHYROXINE 88 MCG TAB PO SCH (06:36)
[2017-10-11] MEDS ORDERED: ENOXAPARIN 30 MG/0.3 ML SYR SC SCH (09:00)
--- NOTE | 2017-10-11 09:04 | CPEKG ---
Heart Rate: 80 RR Interval: 750 P-R Interval: 208 QRSD Interval: 92 QT Interval: 392 QTC Interval: 453 P [place]: 62 QRS [place]: -7 T Wave [place]: 23 EKG Severity - BORDERLINE ECG - EKG Impression: SINUS RHYTHM EKG Impression: ATRIAL PREMATURE COMPLEX EKG Impression: LOW VOLTAGE THROUGHOUT Electronically Signed By: Yusuf López 12-Oct-2017 21:13:49
--- NOTE | 2017-10-11 09:18 | ASMTCASEMG ---
Living Arrangements What is your living Answers: Alone arrangement? Who do you live with? Type Of Residence What kind of residence do Answers: Assisted Living you live in? Type of Residence Facility Name Notes: [facility] Discharge Plan Comments Coordination Status Comments Notes: Pt is a 87 y/o man admitted for sepsis, UTI, and elevated troponin. Cards have been consulted. Therapies have been ordered and awaiting recommendations. Needs are TBD at this time. CM to follow. Plan: TBD Date Signed: 10/11/2017 09:17 AM Electronically Signed By:YASIR Hastings
[2017-10-11] MEDS: QUEtiapine FUMARATE 25 MG TAB PO SCH (09:51)
[2017-10-11] MEDS: QUEtiapine FUMARATE 50 MG TAB PO SCH (09:51)
[2017-10-11] MEDS: TAMSULOSIN HCL 0.4 MG CAP PO SCH (09:51)
[2017-10-11] MEDS: VENLAFAXINE XR 37.5 MG CAP PO SCH ×2 (09:51→17:52)
--- NOTE | 2017-10-11 10:32 | PDMN ---
Medical Necessity Medical necessity: Pt meets inpt criteria per MD order and MCG M-300 Urinary Tract Infection , A-2 days, pt admitted w/ acute on chrionic encephalopathy in setting of UTI, BECCA (BUN/creat 40/1.6) , and dehydration. Hx of dementia, increased at this time, adv age comorbidity. Pt requiring >2MN's for IV ABX's, IVF, and ongoing eval and treatment.
--- NOTE | 2017-10-11 12:23 | HOSPPROG ---
Hospitalist Progress Note Assessment/Plan: 87 yo M with hx of dementia admitted with acute on chronic encephalopathy in setting of UTI and BECCA/dehydration # acute on chronic encephalopathy: at baseline with fairly advanced dementia that sounds as if it has been more acutely progressive recently, admitted with decreased responsiveness and increased confusion from baseline. Suspect this is multifactorial with acute infectious process, dehydration contributing but also with progression of his dementia playing a role. Overnight s/p abx and IVF patient much more awake and alert and closer to his usual baseline. Will continue to monitor. # e coli bacteremia: with urinary source, started on ctx with clinical improvement, final sensitivites pending. Treating with ctx for now. # UTI: in setting of above, cultures pending, started on ctx and will continue for now pending culture data as above # becca: in setting of becca and dehydration, baseline creatinine of 1.1, increased to 1.6 on admission but improved some overnight with IVF # leukocytosis: 2/2 bacteremia/uti, improving # anemia: mild and stable # IP status, will need > 48 hours stay for eval/mgmt of above Care plan reviewed with patients and daughter present at bedside. Subjective: no significant overnight events, today patient is much more awake/ alert/interactive, eating well, getting up wtih pt Objective: Vital Signs Temp Pulse Resp BP Pulse Ox 37.3 C 83 20 120/73 90 L 10/11/17 11:28 10/11/17 11:28 10/11/17 11:28 10/11/17 11:28 10/11/17 11:28 Laboratory Results 10/11/17 04:04 10/11/17 04:04 10/10/17 10/11/17 10/12/17 05:59 05:59 05:59 Intake Total 4590 250 Output Total 50 Balance 4540 250 Constitutional: no apparent distress, appears nourished Eyes: PERRL Ears, Nose, Mouth, Throat: ears appear normal, dry mucous membranes Cardiovascular: regular rate and rhythym, no murmur, rub, or gallop, No edema Respiratory: no respiratory distress, no rales or rhonchi Gastrointestinal: normoactive bowel sounds, soft, non-tender abdomen Genitourinary: no bladder fullness Skin: warm, normal color Musculoskeletal: no muscle tenderness, No asymmetric calves Neurologic: CN II-XII Intact, oriented x 2 Psychiatric: not anxious, interacting appropriately ICD10 Worksheet Patient Problems: Problems Problem Status Onset Elevated troponin Acute Sepsis Acute Urinary tract infection Acute Allergic reaction Acute Arrhythmia Acute Dementia Acute Syncope Acute
[2017-10-11] MEDS: QUEtiapine FUMARATE 100 MG TAB PO SCH (17:52)
[2017-10-12] MEDS: LEVOTHYROXINE 88 MCG TAB PO SCH (06:10)
[2017-10-12] MEDS: QUEtiapine FUMARATE 25 MG TAB PO SCH (10:26)
[2017-10-12] MEDS: ENOXAPARIN 40 MG/0.4 ML SYR SC SCH (10:26)
[2017-10-12] MEDS: TAMSULOSIN HCL 0.4 MG CAP PO SCH (10:26)
[2017-10-12] MEDS: VENLAFAXINE XR 37.5 MG CAP PO SCH ×2 (10:26→17:52)
[2017-10-12] MEDS: QUEtiapine FUMARATE 50 MG TAB PO SCH (10:26)
--- NOTE | 2017-10-12 13:10 | ASMTCMCOM ---
CM Note CM Note Notes: CM spoke to Dr. Ingram regarding d/c POC. CM met w/ pts daughter and pt for dispo planning. PT is recommending HC. OT is recommending home vs HC. Pt and pts daughter agreeable to having HC at [facility]. CM spoke to Renate at [facility]. Renate reports that they use [facility] for HC. Referral sent to [facility]. Renate reports that they require a signed med list from the doctor and PRN medications are not accepted. CM to follow. Plan: Back to Memory [facility] w/ [facility]; PT, OT, RN Date Signed: 10/12/2017 01:09 PM Electronically Signed By:YASIR Hastings
--- NOTE | 2017-10-12 15:03 | HOSPPROG ---
Hospitalist Progress Note Assessment/Plan: 87 yo M with hx of dementia admitted with acute on chronic encephalopathy in setting of UTI and BECCA/dehydration # acute on chronic encephalopathy: at baseline with fairly advanced dementia that sounds as if it has been more acutely progressive recently, admitted with decreased responsiveness and increased confusion from baseline. Suspect this is multifactorial with acute infectious process, dehydration contributing but also with progression of his dementia playing a role. Resolved thought has some weakness that is continued # e coli bacteremia: with urinary source, started on ctx with clinical improvement, sensitive to levofloxacin which he has been transitioned to # UTI: in setting of above, cultures pending, started on ctx and will continue for now pending culture data as above # becca: in setting of becca and dehydration, baseline creatinine of 1.1, increased to 1.6 on admission but improved some overnight with IVF # leukocytosis: 2/2 bacteremia/uti, improving # anemia: mild and stable # IP status, will need > 48 hours stay for eval/mgmt of above Care plan reviewed with patients present at bedside. Subjective: no acute overnight events, patient feeling better again today Objective: Vital Signs Temp Pulse Resp BP Pulse Ox 37.1 C 80 24 H 121/65 H 93 10/12/17 10:56 10/12/17 10:56 10/12/17 10:56 10/12/17 10:56 10/12/17 10:56 Laboratory Results 10/11/17 04:04 10/11/17 04:04 10/11/17 10/12/17 10/13/17 05:59 05:59 05:59 Intake Total 4590 1275 Output Total 50 Balance 4540 1275 Constitutional: no apparent distress, appears nourished Eyes: PERRL Ears, Nose, Mouth, Throat: ears appear normal, dry mucous membranes Cardiovascular: regular rate and rhythym, no murmur, rub, or gallop, No edema Respiratory: no respiratory distress, no rales or rhonchi Gastrointestinal: normoactive bowel sounds, soft, non-tender abdomen Genitourinary: no bladder fullness Skin: warm, normal color Musculoskeletal: no muscle tenderness, No asymmetric calves Neurologic: CN II-XII Intact, oriented x 2 Psychiatric: not anxious, interacting appropriately ICD10 Worksheet Patient Problems: Problems Problem Status Onset Elevated troponin Acute Sepsis Acute Urinary tract infection Acute Allergic reaction Acute Arrhythmia Acute Dementia Acute Syncope Acute
[2017-10-12] MEDS: QUEtiapine FUMARATE 100 MG TAB PO SCH (17:52)
[2017-10-13] MEDS: LEVOTHYROXINE 88 MCG TAB PO SCH (06:22)
[2017-10-13 07:32] VITALS: BP 150/96
[2017-10-13] MEDS: VENLAFAXINE XR 37.5 MG CAP PO SCH (08:26)
[2017-10-13] MEDS: ENOXAPARIN 40 MG/0.4 ML SYR SC SCH (08:27)
[2017-10-13] MEDS: QUEtiapine FUMARATE 25 MG TAB PO SCH (08:27)
[2017-10-13] MEDS: QUEtiapine FUMARATE 50 MG TAB PO SCH (08:27)
[2017-10-13] MEDS: TAMSULOSIN HCL 0.4 MG CAP PO SCH (08:27)
--- NOTE | 2017-10-13 09:32 | PDDCSUM ---
Discharge Summary Discharge Summary: Dates of service 10/10-10/13/17 Consultations: none Procedures performed: head cT Hospital course by problem: 87 yo M with hx of dementia admitted with acute on chronic encephalopathy in setting of UTI and BECCA/dehydration # acute on chronic encephalopathy: at baseline with fairly advanced dementia that sounds as if it has been more acutely progressive recently, admitted with decreased responsiveness and increased confusion from baseline. Suspect this is multifactorial with acute infectious process, dehydration contributing but also with progression of his dementia playing a role. Resolved though has some weakness that is continued # e coli bacteremia: with urinary source, started on ctx with clinical improvement, sensitive to levofloxacin which he has been transitioned to # UTI: in setting of above, cultures pending, started on ctx and will continue for now pending culture data as above # becca: in setting of becca and dehydration, baseline creatinine of 1.1, increased to 1.6 on admission but improved some overnight with IVF # leukocytosis: 2/2 bacteremia/uti, improving # anemia: mild and stable # DNR dc home with home health f/u with PCP > 35 min spent in dc more than half in counseling patient and his regarding f/u care plans
--- NOTE | 2017-10-13 09:32 | PDIAF ---
- Diagnosis Code Status: Do Not Resuscitate - Medication Management Discharge Medications: Medications to Continue on Transfer Tamsulosin HCl [Flomax 0.4 MG (*)] 0.4 mg PO DAILY 08/10/11 [Last Taken 10/10/17 ] Aspirin [Aspirin 325 mg (*)] 325 mg PO DAILY 03/17/12 [Last Taken 10/10/17] Multivitamins [Multivitamin (*)] 1 tab PO DAILY 03/17/12 [Last Taken 10/10/17] Cholecalciferol Vit D3 [Vitamin D3 (*)] 1,000 units PO DAILY 04/18/17 [Last Taken 10/10/17] Levothyroxine [Synthroid 88 mcg (*)] 88 mcg PO DAILY06 04/18/17 [Last Taken 01/18] Venlafaxine Xr [Effexor Xr 37.5MG (*)] 37.5 mg PO BIDMEAL 04/18/17 [Last Taken 10/10/17] EPINEPHrine [Epipen Jr 0.15 MG] 0.15 mg IM ONCE 10/10/17 [Last Taken Unknown] QUEtiapine FUMARATE [Seroquel 100 mg (*)] 100 mg PO DAILY@17 10/10/17 [Last Taken 10/09/17] QUEtiapine FUMARATE [Seroquel 25 mg (*)] 25 mg PO DAILY 10/10/17 [Last Taken 01/18] QUEtiapine FUMARATE [Seroquel 50 mg (*)] 50 mg PO DAILY 10/10/17 [Last Taken 01/18] levOFLOXACIN [Levofloxacin] 750 mg PO Q2D #5 tablet 10/13/17 [Last Taken Unknown ] Discharge Medications: Refer to the Discharge Home Medication list for PRN reason. - Orders Services needed: Home Care, Registered Nurse, Certified [employer], Physical Therapy, Occupational Therapy Home Care Face to Face: I certify that this patient was under my care and that I had the required [id number] encounter meeting the encounter requirements on the discharge day. My findings support the fact that the patient is homebound as defined in Home Care Face to Face Continued: CMS Chapter 7 Medicare Benefits Manual 30.1.1 , The condition of the patient is such that there exists a normal inability to leave home and consequently, leaving home would require a considerable and taxing effort. Isolation Type: None Diet Recommendation: no restrictions on diet - Follow Up Care Current Providers and Referrals: Roc Herrera MD [Primary Care Provider] - As per Instructions
--- NOTE | 2017-10-13 09:42 | ASMTLACE ---
LACE Length of stay for Answers: 3 days current admission Acuity / Level of Answers: Yes Care: Did the patient have an inpatient admission? Comorbidities - select Answers: Coronary Artery Disease all that apply Dementia # of Emergency department Answers: 1-2 visits in the last 6 months Score: 12 Date Signed: 10/13/2017 09:42 AM Electronically Signed By:YASIR Hastings
--- NOTE | 2017-10-13 09:45 | ASDISCHSUM ---
Discharge Information Plan Status:Home with Home Health Medically Cleared to Leave:10/13/2017 Discharge Date:10/13/2017 CM D/C Disposition: ADT D/C Disposition:Home Health Service Projected Discharge Date:10/13/2017 11:00 AM Transportation at D/C: Discharge Delay Reason: Follow-Up Date:10/13/2017 11:00 AM Discharge Slot: Final Diagnosis: Placement Information Referral Type:*Home Health Care Services Referral ID:[id number] Provider Name:[facility] (DN) Address 1:[address] [place] [address] Address 2: City:[place] Selection Factors: State:[place] Patient Contact Information Contact Name:CHRISS Relationship: Address:[address] City:[place] Alternate Phone: State/Zip Code:[place] [address] Email: Financial Information Financial Class:Medicare Primary Plan Desc:MEDICARE INPATIENT Primary Plan Number:[id number] [facility] Desc[facility] Secondary Plan Number:[id number] Assessment Information LACE LACE Length of stay for Answers: 3 days current admission Acuity / Level of Answers: Yes Care: Did the patient have an inpatient admission? Comorbidities - select Answers: Coronary Artery Disease all that apply Dementia # of Emergency department Answers: 1-2 visits in the last 6 months Score: 12 Date Signed: 10/13/2017 09:42 AM Electronically Signed By:YSAIR Hastings [facility] Initial CM Assessment Living Arrangements What is your living Answers: Alone arrangement? Who do you live with? Type Of Residence What kind of residence do Answers: Assisted Living you live in? Type of Residence Facility Name Notes: [facility] Discharge Plan Comments Coordination Status Comments Notes: Pt is a 87 y/o man admitted for sepsis, UTI, and elevated troponin. Cards have been consulted. Therapies have been ordered and awaiting recommendations. Needs are TBD at this time. CM to follow. Plan: TBD Date Signed: 10/11/2017 09:17 AM Electronically Signed By:YASIR Hastings [facility] Progress Note CM Note CM Note Notes: CM spoke to Dr. Ingram regarding d/c POC. CM met w/ pts daughter and pt for dispo planning. PT is recommending HC. OT is recommending home vs HC. Pt and pts daughter agreeable to having HC at [facility]. CM spoke to Renate at [facility]. Renate reports that they use [facility] for HC. Referral sent to [facility]. Renate reports that they require a signed med list from the doctor and PRN medications are not accepted. CM to follow. Plan: Back to [facility] w/ [facility]; PT, OT, RN Date Signed: 10/12/2017 01:09 PM Electronically Signed By:YASIR Hastings Case Management Discharge Plan Note Case Management Discharge Discharge Order Complete? Answers: Yes Patient to Obtain Answers: Other Notes: [facility] Medications Transportation Arranged Answers: Family/Friends EMTALA Complete Answers: No Case Management Transport Answers: No Form Complete Faxed Final Orders Answers: Yes Agency/Facility Transfer Answers: Yes Report Printed & Faxed to Receiving Agency Family Notified Answers: No Discharge Comments Notes: CM spoke to Dr. Ingram regarding d/c POC. Pt is being discharged today. DC orders sent to [facility] and to [facility]. CM called [facility] and confirmed that they have gotten the d/c orders. No other needs identified at this time. CM available for changes. Plan: [facility]; PT, OT, RN Date Signed: 10/13/2017 09:44 AM Electronically Signed By:YASIR Hastings Intervention Information
== END 2017-10-13 13:05 | disposition home health service (06) | DRG 689 ==
LOC: EDUNIT# → F2W 12:23
PROVIDERS: ADMIT Internal Medicine; ATTEND Internal Medicine
DX: N39.0 Urinary tract infection, site not specified (principal); G93.49 Other encephalopathy; N17.9 Acute kidney failure, unspecified; E86.0 Dehydration; F03.90 Unspecified dementia, unspecified severity, without behavioral disturbance, psychotic disturbance, mood disturbance, and anxiety; D64.9 Anemia, unspecified; Z95.810 Presence of automatic (implantable) cardiac defibrillator
CPT/HCPCS: 84484-PO; 96374; 97116-GP; 97161-GP; 97165-GO; 97530-GO; 97530-GP; 97535-GO; G8978-GP-CJ; G8979-GP-CI; G8987-GO-CK; G8988-GO-CI; J0696; J1650

== ENCOUNTER → 2017-12-05 | Outpatient (CLI) | payer OTHER | LOC: FIMAGING 09:23 | PROVIDERS: ATTEND Internal Medicine | DX: M19.071 Primary osteoarthritis, right ankle and foot (principal); M85.471 Solitary bone cyst, right ankle and foot; I82.890 Acute embolism and thrombosis of other specified veins; M79.81 Nontraumatic hematoma of soft tissue ==

== ENCOUNTER 2018-03-23 11:54 | Emergency (ER) | payer OTHER ==
--- NOTE | 2018-03-23 11:57 | EDPHY ---
HPI/HX/ROS/PE/MDM - Data Points Imaging: Discussed imaging studies w/ call or contact centre operator Radiologist, I viewed and interpreted images myself Narrative: CHIEF COMPLAINT: Unwitnessed fall, left leg pain HPI: The patient is an 87 y/o male with a history of dementia arriving via EMS from [facility] after an unwitnessed fall today complaining of left leg pain. Minimal information from the facility was communicated to EMS regarding prior medical history or details regarding current symptoms. He is on Eliquis, possibly for a history of atrial fibrillation since EMS noted he was in a-fib on their monitor. He was mildly hypotensive at 100/62. Further information unobtainable from patient due to dementia. REVIEW OF SYSTEMS: Unobtainable due to dementia. PMH: Dementia, on Eliquis SOCIAL HISTORY: Lives at [facility] in [place]. Retired. PHYSICAL EXAM: General:Patient is alert, in no acute distress. ENT:Eyes are normal to inspection. ENT inspection normal. Neck: Normal inspection. Full range of motion. Respiratory:No respiratory distress. Breath sounds normal bilaterally. Cardiovascular: Regular rate and rhythm. Strong peripheral pulses. Normal cap refill. Abdomen:The abdomen is nontender to palpation. There are no peritoneal signs. Back: Normal to inspection. No tenderness to palpation. Skin: Diffusely erythematous. No rash. Warm and dry. Extremities: Normal appearance. Full range of motion. Neuro: Alert. Normal motor function. Normal sensory function. (Stephane Harris) ED Course: This is an anticoagulated 87 y/o male with dementia who presents complaining of left leg pain after an unwitnessed fall. His skin is diffusely erythematous, but his exam is otherwise unremarkable. Plan for IV, labs, EKG, head CT, left hip and knee x-rays. 1205: Family arrived at bedside and repots his symptoms are similar to several prior anaphylactic events. They don't know exactly what he is allergic to, though adhesives have triggered this previously. She also says he has an infection on his left arm that is currently being treated. He is on anticoagulants for a DVT. Apart from erythema, he has no signs of anaphylaxis. His airway is patent and breath sounds are equal. 25mg IV Benadryl and 1L IV NS ordered. Labs are unremarkable. The 12 lead EKG was interpreted by myself. Atrial fibrillation. See hard copy and/or "tracemaster" electronic copy for interpretation. 1312: Head CT negative for acute findings per Dr. Roberts. Reassessed patient and discussed findings with patient and family. Flushed skin episode resolved after 25mg IV Benadryl. They report his mental status is worse than baseline and it's still unclear quite what happened around this fall today. X-rays unremarkable. Plan for admission. Spoke with hospitalist service. Dr. Willis accepts admission. 1515: Patient care signed out to Dr. Sands at shift change pending patient transfer to IR. (Stephane Harris) MDM: 1626: Notified by the hospitalist service Dr. Willis, as well as the daughter at bedside and patient that they would like to go home and not be admitted. Daughter at bedside reports that his mental state is back to normal and that he has advanced dementia and does better at a memory care unit at [facility]. The daughter is refusing hospital admission for him the patient is back to normal mental baseline according to the daughter. Dr. Sarah bass recommends the patient being discharged instead of being admitted. Please see his note. I did go speak with the daughter as well as met the patient. They have no complaints there eager for discharge. Return precautions discussed. (Davide Sands) - Data Points Imaging Results: Imaging Impressions Head CT 03/23/18 12:30 Impression: 1. Moderately advanced senescent features, with no acute intracranial abnormality identified on this unenhanced CT evaluation. 2. Right maxillary sinusitis with chronic and questionably acute superimposed features (new from a prior study in October). If there is further clinical concern regarding the patient's symptoms, MR imaging is suggested, if not otherwise contraindicated. Findings were discussed with Stephane Harris MD at 13:11, on 03/23/2018. Hip X-Ray 03/23/18 12:32 Impression: There is no acute osseous abnormality identified. If there is a high clinical concern regarding an occult left hip fracture, CT or MR imaging could be considered. Knee X-Ray 03/23/18 12:32 Impression: Negative. No acute fracture or effusion. Laboratory Results: Laboratory Results 03/23/18 12:00 03/23/18 12:00 03/23/18 03/23/18 03/23/18 12:11 12:00 12:00 WBC RBC Hgb Hct MCV MCH MCHC RDW Plt Count MPV Neut % (Auto) Lymph % (Auto) Aiken % (Auto) Eos % (Auto) Baso % (Auto) Nucleat RBC Rel Count Absolute Neuts (auto) Absolute Lymphs (auto) Absolute Monos (auto) Absolute Eos (auto) Absolute Basos (auto) Absolute Nucleated RBC Immature Gran % Immature Gran # PT 13.5 SEC SEC (12.0-15.0) INR 1.01 (0.83-1.16) APTT 25.6 SEC SEC (23.0-38.0) Sodium 138 mEq/L mEq/L (135-145) Potassium 4.4 mEq/L mEq/L (3.5-5.2) Chloride 110 mEq/L mEq/L (97-110) Carbon Dioxide 19 mEq/l L mEq/l (22-31) Anion Gap 9 mEq/L mEq/L (6-14) BUN 25 mg/dL H mg/dL (7-23) Creatinine 1.3 mg/dL mg/dL (0.7-1.3) Estimated GFR 52 Glucose 99 mg/dL mg/dL (70-100) Calcium 8.9 mg/dL mg/dL (8.5-10.4) POC Troponin I 0.02 ng/mL ng/mL (0.00-0.08) 03/23/18 12:00 WBC 4.96 10^3/uL 10^3/uL (3.80-9.50) RBC 4.30 10^6/uL L 10^6/uL (4.40-6.38) Hgb 13.3 g/dL L g/dL (13.7-17.5) Hct 40.8 % % (40.0-51.0) MCV 94.9 fL fL (81.5-99.8) MCH 30.9 pg pg (27.9-34.1) MCHC 32.6 g/dL g/dL (32.4-36.7) RDW 14.0 % % (11.5-15.2) Plt Count 274 10^3/uL 10^3/uL (150-400) MPV 9.3 fL fL (8.7-11.7) Neut % (Auto) 50.1 % % (39.3-74.2) Lymph % (Auto) 41.7 % % (15.0-45.0) Aiken % (Auto) 5.2 % % (4.5-13.0) Eos % (Auto) 2.4 % % (0.6-7.6) Baso % (Auto) 0.2 % L % (0.3-1.7) Nucleat RBC Rel Count 0.0 % % (0.0-0.2) Absolute Neuts (auto) 2.48 10^3/uL 10^3/uL (1.70-6.50) Absolute Lymphs (auto) 2.07 10^3/uL 10^3/uL (1.00-3.00) Absolute Monos (auto) 0.26 10^3/uL L 10^3/uL (0.30-0.80) Absolute Eos (auto) 0.12 10^3/uL 10^3/uL (0.03-0.40) Absolute Basos (auto) 0.01 10^3/uL L 10^3/uL (0.02-0.10) Absolute Nucleated RBC 0.00 10^3/uL 10^3/uL (0-0.01) Immature Gran % 0.4 % % (0.0-1.1) Immature Gran # 0.02 10^3/uL 10^3/uL (0.00-0.10) PT INR APTT Sodium Potassium Chloride Carbon Dioxide Anion Gap BUN Creatinine Estimated GFR Glucose Calcium POC Troponin I Medications Given: Discontinued Medications Diphenhydramine HCl (Benadryl Injection) 25 mg IVP EDNOW ONE Stop: 03/23/18 12:12 Last Admin: 03/23/18 12:15 Dose: 25 mg Haloperidol Lactate (Haldol Injection) 1 mg IVP ONCE ONE Stop: 03/23/18 15:45 Last Admin: 03/23/18 15:48 Dose: 1 mg Sodium Chloride (Ns) 1,000 mls @ 0 mls/hr IV EDNOW ONE; Wide Open PRN Reason: Protocol Stop: 03/23/18 12:00 Last Admin: 03/23/18 12:21 Dose: 1,000 mls Point of Care Test Results: Chemistry 03/23/18 12:11 POC Troponin I 0.02 ng/mL ng/mL (0.00-0.08) General Initial Vital Signs: Initial Vital Signs Heart Rate 79 03/23/18 11:54 Respiratory Rate 18 03/23/18 11:54 Blood Pressure 120/65 03/23/18 11:54 O2 Sat (%) 84 L 03/23/18 11:54 O2 Delivery Mode Room Air O2 (L/minute) 4 Allergies/Adverse Reactions: latex [Latex] Allergy (Severe, Verified 03/23/18 12:05) Rash adhesive Allergy (Verified 03/23/18 12:05) Home Medications: Medication Instructions Recorded Tamsulosin HCl [Flomax 0.4 MG (*)] 0.4 mg PO DAILY 08/10/11 Aspirin [Aspirin 325 mg (*)] 325 mg PO DAILY 03/17/12 Multivitamins [Multivitamin (*)] 1 tab PO DAILY 03/17/12 Cholecalciferol Vit D3 [Vitamin D3 1,000 units PO DAILY 04/18/17 (*)] Levothyroxine [Synthroid 88 mcg 88 mcg PO DAILY06 04/18/17 (*)] Venlafaxine Xr [Effexor Xr 37.5MG 37.5 mg PO BID 04/18/17 (*)] EPINEPHrine [Epipen Jr 0.15 MG] 0.15 mg IM ONCE 10/10/17 QUEtiapine FUMARATE [Seroquel 100 100 mg PO BID@02/21/18 mg (*)] Oxymetazoline HCl [Afrin Nasal 2 spray EACHNARE BID PRN 03/23/18 [place] (OTC)] Departure - Departure Disposition: [facility] Acute Clinical Impression: Left leg pain Fall Qualifiers: Encounter type: initial encounter Qualified Code(s): W19.XXXA - Unspecified fall, initial encounter Dementia Qualifiers: Dementia type: unspecified type Dementia behavioral disturbance: without behavioral disturbance Qualified Code(s): F03.90 - Unspecified dementia without behavioral disturbance Condition: Fair Report Scribed for: Stephane Harris Report Scribed by: Fernanda Espinoza Date of Report: 03/23/18 Time of Report: 12:11 Physician Review and Approval Statement: Portions of this note were transcribed by an ED scribe. I personally performed the history, physical exam, and medical decision making; and confirm the accuracy of the information in the transcribed note.
[2018-03-23] MEDS ORDERED: NS 1,000 ML IV ONE (11:59)
[2018-03-23 12:22] LABS: PLATELET COUNT 274 10^3/uL (150-400)
[2018-03-23 12:37] LABS: INR 1.01 (0.83-1.16); PROTIME(PATIENT) 13.5 SEC (12.0-15.0)
[2018-03-23 14:53] VITALS: BP 168/82
[2018-03-23] MEDS ORDERED: HALOPERIDOL LACT 5 MG/ML INJ IVP ONE (15:44)
[2018-03-23] MEDS ORDERED: HALOPERIDOL LACT 5 MG/ML INJ ONE (15:45)
--- NOTE | 2018-03-23 17:41 | GCON ---
DATE OF CONSULTATION: 03/23/2018 REASON FOR CONSULTATION: I was asked by Dr. Harris to see the patient in regard to his mechanical fall and underlying medical conditions. HISTORY OF PRESENT ILLNESS: This is an 87-year-old man with advanced dementia, who lives in the [facility], who presented with a fall. This was unwitnessed, and it is not entirely clear what caused this event. He does not have any recollection of it. 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 He had a relatively unremarkable workup in the emergency department, including CAT scan of his head, x-rays of his hip and knee, as well as an EKG and pacer interrogation. After he ate a [employer] bar, h is daughter reports that he is currently at his baseline. He has ambulated successfully here. I revie wed his MOLST form, which states that he is a full code (I assume this is due to his AICD); however, he would prefer comfort-based treatment. PAST MEDICAL/SURGICAL HISTORY: 1. Dementia. 2. Idiopathic anaphylaxis. 3. Ventricular tachycardia with AICD in place. 4. BPH. 5. DVT diagnosed in December of this year. MEDICATIONS: Please see medication reconciliation. ALLERGIES: Latex and adhesives. FAMILY HISTORY: Reviewed and noncontributory. 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 He now lives at [facility] . His daughter is involved. His is still living at home. REVIEW OF SYSTEMS: Unobtainable given the patient's current condition. PHYSICAL EXAM: VITAL SIGNS: Blood pressure 168/82, heart rate 74, respiration rate 18, saturating 95 % on 2 L. Temperature is 36.5. GENERAL: The patient is comfortable and conversant, although he has re portedly gotten agitated since I left the room. HEENT: Shows him to be normocephalic, atraumatic. CAR DIOVASCULAR: Exam shows him to have very diminished S1 and S2. There are no murmurs, rubs, or gallops that I appreciate. PULMONARY: Exam shows him to be breathing comfortably. His lungs are clear to aus cultation bilaterally. ABDOMEN: Exam shows normal bowel sounds. He is soft and nontender in all [address]. SKIN: Exam shows no rash. : Exam shows no Garcia. NEUROLOGIC: Exam shows him to have recolle ction of distant memories, though no recent memories. He has a nonfocal neurologic exam, including cr anial nerves, motor, and sensation, which are intact in the upper and lower extremities. PSYCHIATRIC: Exam shows him to be comfortable, although he has reportedly gotten agitated. LABS: Hemoglobin is 13.3. INR is 1.0. Bicarb is 19, BUN 25, creatinine 1.3. Troponin is 0.02. DATA: 1. Knee x-ray is negative. 2. Hip x-ray is negative. 3. Head CT shows some sinusitis, but nothing acute. 4. EKG, which I personally viewed and interpreted, shows sinus rhythm. 5. Pacer interrogation showed no events and no shocks during this time. IMPRESSION AND PLAN: 1. Fall: I do suspect that this is mechanical. There was some question of anaphylaxis, though only f lushing. It seems unlikely that this is an anaphylactic event. Pacer interrogation was negative. Labs are unremarkable. He does not have any other injuries on exam or by imaging. I have discussed with Kelly Herrera. I think weighing the risks/benefits of further monitoring as an inpatient versus disc harge to [facility] weigh towards discharge at this point. His MOLST states that he wants comfort-ba sed care. He will almost certainly become very agitated if we keep him as an inpatient. I already not ed that he was picking at his IV and has been yelling at his daughter. He is not complaining of any o ther symptoms to indicate acute coronary syndrome. I did discuss with Dr. Herrera. We will stop h is anticoagulation given that he has already had 3 months since his last deep vein thrombosis. I have written an order for [facility] to stop this and start aspirin instead. Dr. Herrera will pay hi m a visit at [facility] soon to check on him. 2. Ventricular tachycardia, status post automated implantable cardioverter-defibrillator: No events on pacer interrogation per report. 3. Advanced dementia: He currently resides at [facility]. For my reasons above, I think that this i s the best disposition plan for him at this time. /[id number]/MODL
--- NOTE | 2018-03-26 10:52 | CPEKG ---
Test Reason : OPEN Blood Pressure : / mmHG Vent. Rate : 078 BPM Atrial Rate : 080 BPM P-R Int : 220 ms QRS Dur : 090 ms QT Int : 480 ms P-R-T Axes : 037 023 048 degrees QTc Int : 547 ms Sinus rhythm Atrial premature complexes in couplets Borderline prolonged NH interval Low voltage, extremity and precordial leads Prolonged QT interval Confirmed by Stephane Harris ([id number]) on 03/26/2018 10:52:20 AM Referred By: Confirmed By:Stephane Harris
== END 2018-03-23 16:34 | disposition home or self-care (01) ==
LOC: EDUNIT# → UNDOADMOB 13:46
DX: M79.605 Pain in left leg (principal); F03.90 Unspecified dementia, unspecified severity, without behavioral disturbance, psychotic disturbance, mood disturbance, and anxiety; E86.9 Volume depletion, unspecified; I47.2 Ventricular tachycardia; I48.91 Unspecified atrial fibrillation; N40.0 Benign prostatic hyperplasia without lower urinary tract symptoms; W19.XXXA Unspecified fall, initial encounter; Y92.129 Unspecified place in nursing home as the place of occurrence of the external cause; Z79.01 Long term (current) use of anticoagulants; Z86.718 Personal history of other venous thrombosis and embolism; Z87.891 Personal history of nicotine dependence; Z95.810 Presence of automatic (implantable) cardiac defibrillator; Z91.040 Latex allergy status
CPT/HCPCS: 70450; 73502; 73564; 93005; 96361; 96374; 96375; 99285; J1200; J1630; 84484-ER

== ENCOUNTER 2018-05-07 18:50 | Observation (INO) | payer OTHER ==
--- NOTE | 2018-05-07 19:10 | EDPHY ---
H & P Time Seen by Provider: 05/07/18 18:50 HPI/ROS: CHIEF COMPLAINT: Wheezing, fall HISTORY OF PRESENT ILLNESS: This is an 87 y/o male with a history of dementia arriving via EMS from [facility] for evaluation of an episode of wheezing and witnessed fall this evening. Per staff to EMS, he's had perhaps three similar episodes in the last two days that seemed to resolve after about 10 minutes. Per son, the patient's has visited him several times in the last few days and thought he seemed short of breath. Per staff, today he apparently stumbled into a wall and slid down to the floor. He did not lose consciousness nor suffer any apparent trauma. EMS reports he was hypoxemic at 85% upon their arrival, which improved to 95% on 4LPM en route. The patient denies any complaints at this time. No recent report of cough, fever, chest pain, abdominal pain, urinary issues. History from patient limited due to dementia. Per facility paperwork, on aspirin, but no anticoagulants. now at bedside. She says starting three days ago she "gave him a little stress test" and walked him around the hallway. About alf into the loop he started gasping and panicking and threw himself into a chair and it took 5 minutes for him to regain somewhat normal breathing. Similar episodes have occurred over the last two days as well. She has not noticed any wheezing, just shortness of breath with any exertion. He can normally walk with assistance. She says he has developed a "gut" recently. He has no known history of CAD or IA. REVIEW OF SYSTEMS: A ten system review of systems was performed and is negative with the exception of the items mentioned in the HPI. Past medical history: 1. Dementia 2. Hypertension 3. Hypothyroidism 4. CHF 5. Ventricular tachycardia 6. BPH Past surgical history: 1. Pacemaker/AICD for VT Family history: Noncontributory Social history: Son at bedside. . Lives at [facility]. MOST form says "Yes CPR" and also "Comfort-Focused Treatment". Never smoker. Prior heavier drinker, sober for 15-20 years. 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 PCP: Dr. Herrera. Prior medical records reviewed including ED visit 03/23/18 for fall and admission 10/10/17 for confusion. General Appearance: Alert. Vital signs reviewed. Sitting up eating macadamia nuts. SpO2 94% on room air, BP 184/98. Eyes: Pupils equal and round, no conjunctival injection, no discharge. Anicteric. ENT, Mouth: Mucous membranes are moist, no oropharyngeal erythema or edema. Neck: No lymphadenopathy, supple. Respiratory: Lungs have crackles on the right, diminished on the left. No wheezes or rhonchi. Cardiovascular: Regular rate and rhythm; no murmur, rub, or gallop. Gastrointestinal: Abdomen is soft and nontender, no masses or organomegaly. Skin: Warm and dry, no rashes on exposed skin, normal color. Back: Nontender to palpation over the thoracolumbar spine. No CVAT. Extremities: Trace bilateral lower extremity edema, no calf tenderness or swelling. Neurological: Alert and oriented to person only (at baseline). Moving all four extremities easily and equally. Psychiatric: Normal affect. Constitutional: Initial Vital Signs Temperature (C) 36.8 C 05/07/18 18:58 Heart Rate 94 05/07/18 18:58 Respiratory Rate 16 05/07/18 18:58 Blood Pressure 166/84 H 05/07/18 18:58 O2 Sat (%) 92 05/07/18 18:58 O2 Delivery Mode Room Air Allergies/Adverse Reactions: latex [Latex] Allergy (Severe, Verified 03/23/18 12:05) Rash adhesive Allergy (Verified 03/23/18 12:05) Home Medications: Medication Instructions Recorded Tamsulosin HCl [Flomax 0.4 MG (*)] 0.4 mg PO DAILY 08/10/11 Multivitamins [Multivitamin (*)] 1 tab PO DAILY 03/17/12 Cholecalciferol Vit D3 [Vitamin D3 1,000 units PO DAILY 04/18/17 (*)] Levothyroxine [Synthroid 88 mcg 88 mcg PO DAILY06 04/18/17 (*)] Venlafaxine Xr [Effexor Xr 37.5MG 37.5 mg PO BID 04/18/17 (*)] EPINEPHrine [Epipen Jr 0.15 MG] 0.15 mg IM ONCE 10/10/17 QUEtiapine FUMARATE [Seroquel 100 100 mg PO BID@02/21/18 mg (*)] Oxymetazoline HCl [Afrin Nasal 2 spray EACHNARE DAILY 03/23/18 [place]] Aspirin [Aspirin 81mg (*)] 81 mg PO DAILY 05/07/18 levOFLOXACIN [levAQUIN (*)] 750 mg PO Q2D #3 tab 05/08/18 predniSONE 40 mg PO DAILY #6 tablet 05/08/18 Medical Decision Making - Diagnostics Imaging: I viewed and interpreted images myself ED Course/Re-evaluation: Spoke with and family at length regarding how aggressive they would like us to be regarding testing and interventions. His says these symptoms are an acute form of a progressive ongoing issue. She thinks he should be evaluated for heart failure with chest x-ray, IV, and labs as it will influence his care at [facility]. I also discussed the contradiction on his MOST form between selecting "Yes CPR" and "Comfort-focused Treatment." agrees this is confusing and will follow up with patient's PCP. The 12 lead EKG was interpreted by myself. Sinus rhythm. PAC. See hard copy and/ or "tracemaster" electronic copy for interpretation. Chest x-ray: airways disease, possible pneumonia Labs unremarkable apart from elevated creatinine 1.4 similar to prior visits and mildly elevated BNP 827, but acceptable for age. Reassessed patient and discussed findings. I do not find mendy evidence of heart failure on work up here. Will trial walk through the department and determine disposition. Patient ambulated through the department with assistance and his SpO2 dropped to 82%. Plan to treat for presumed pneumonia and admit. 1gm IV Ceftriaxone and 500mg IV azithromycin ordered. He does not meet SIRS/sepsis criteria. Spoke with hospitalist service. Dr. Julien accepts admission. Differential Diagnosis: DDX of SOB includes but is not limited to infectious etiology (pneumonia), RAD, CHF, de-conditioning, COPD. - Data Points Laboratory Results: Laboratory Results 05/07/18 18:50 05/07/18 18:50 Medications Given: Discontinued Medications Albuterol/Ipratropium (Duoneb) 3 ml IH QID [facility] Stop: 11/04/18 05:59 Last Admin: 05/08/18 11:41 Dose: 3 ml Aspirin (Aspirin) 81 mg PO DAILY [facility] Stop: 11/04/18 08:59 Last Admin: 05/08/18 07:56 Dose: 81 mg Cholecalciferol (Vitamin D) 1,000 units PO DAILY [facility] Stop: 11/04/18 08:59 Last Admin: 05/08/18 07:56 Dose: 1,000 units Heparin Sodium (Porcine) (Heparin Sc Injection) 5,000 unit SC Q8 [facility] Stop: 11/03/18 21:59 Last Admin: 05/08/18 06:21 Dose: 5,000 unit Ceftriaxone Sodium/Dextrose (Rocephin 1 Gm (Premix)) 50 mls @ 100 mls/hr IV EDNOW ONE PRN Reason: Protocol Stop: 05/07/18 21:31 Last Admin: 05/07/18 21:23 Dose: 50 mls Azithromycin 500 mg/ Sodium (Chloride) 255 mls @ 255 mls/hr IV EDNOW ONE PRN Reason: Protocol Stop: 05/07/18 22:59 Last Admin: 05/07/18 21:57 Dose: 255 mls Ceftriaxone Sodium/Dextrose (Rocephin 1 Gm (Premix)) 50 mls @ 100 mls/hr IV DAILY [facility] PRN Reason: Protocol Stop: 06/07/18 08:59 Last Admin: 05/08/18 07:57 Dose: 50 mls Levothyroxine Sodium (Synthroid) 88 mcg PO DAILY06 [facility] Stop: 11/04/18 05:59 Last Admin: 05/08/18 06:21 Dose: 88 mcg Oxymetazoline HCl (Afrin Nasal [place]) 2 sprays EACHNARE DAILY [facility] Stop: 11/04/18 08:59 Last Admin: 05/08/18 07:56 Dose: 2 spray Prednisone (Prednisone) 40 mg PO DAILY [facility] Stop: 11/03/18 22:14 Last Admin: 05/08/18 07:56 Dose: 40 mg Quetiapine Fumarate (Seroquel) 100 mg PO BID@10,21 [facility] Stop: 11/04/18 09:59 Last Admin: 05/08/18 12:03 Dose: 100 mg Tamsulosin HCl (Flomax) 0.4 mg PO DAILY [facility] Stop: 11/04/18 08:59 Last Admin: 05/08/18 07:56 Dose: 0.4 mg Venlafaxine HCl (Effexor Xr) 37.5 mg PO BID [facility] Stop: 11/04/18 08:59 Last Admin: 05/08/18 07:56 Dose: 37.5 mg Point of Care Test Results: Chemistry 05/07/18 19:38 POC Troponin I 0.06 ng/mL ng/mL (0.00-0.08) Departure - Departure Disposition: [facility] Inpatient Acute Clinical Impression: Renal insufficiency, Hypoxemia Fall Qualifiers: Encounter type: initial encounter Qualified Code(s): W19.XXXA - Unspecified fall, initial encounter Dyspnea Qualifiers: Dyspnea type: dyspnea on exertion Qualified Code(s): R06.09 - Other forms of dyspnea Pneumonia Qualifiers: Pneumonia type: due to unspecified organism Laterality: unspecified laterality Lung location: unspecified part of lung Qualified Code(s): J18.9 - Pneumonia, unspecified organism Condition: Fair Report Scribed for: Yudy Marte Report Scribed by: Fernanda Espinoza Date of Report: 05/07/18 Time of Report: 18:56 Physician Review and Approval Statement: 05/12/18 14:00 Portions of this chart were entered by a medical assembler. I personally performed the history, physical, MDM. I agree with the documentation, as evidenced by my signature.
[2018-05-07 19:35] LABS: PLATELET COUNT 272 10^3/uL (150-400)
[2018-05-07] MEDS ORDERED: AZITHROMYCIN IV 500 MG in D5W 250 ML IV ONE (21:02)
[2018-05-07] MEDS ORDERED: ALBUTEROL 3 ML DEYVIAL IH PRN (21:34)
[2018-05-07] MEDS ORDERED: ONDANSETRON 4 MG/2 ML VIAL IVP PRN (21:34)
[2018-05-07] MEDS ORDERED: ACETAMINOPHEN 325 MG TAB PO PRN (21:34)
[2018-05-07] MEDS ORDERED: ONDANSETRON DISINTEGRATING 4 MG TAB PO PRN (21:34)
[2018-05-07] MEDS ORDERED: AZITHROMYCIN IV 500 MG in NS 250 ML IV ONE (22:00)
--- NOTE | 2018-05-07 22:03 | PDGENHP ---
History and Physical - Chief Complaint SOB - History of Present Illness Dk Michael is a 87 yo M with a PMHx of dementia, VT s/p AICD who presents to [facility] for SOB. Patient is not a good historian, information obtained from ED physician, chart, review, and , who was at bedside. reports that he has had episodes of dyspnea on exertion in the past few days. It is associated with wheezing and a fall this evening. There was no LOC per report. His also reports that he was clutching the left side of his chest during one of these episodes. When asked patient denied chest pain, SOB, BELL, cough, wheezing. EMS reported hypoxia 85% upon their arrival which improved to 95% on 4L. History Information - Allergies/Home Medication List Allergies/Adverse Reactions: latex [Latex] Allergy (Severe, Verified 03/23/18 12:05) Rash adhesive Allergy (Verified 03/23/18 12:05) Home Medications: Tamsulosin HCl [Flomax 0.4 MG (*)] 0.4 mg PO DAILY 08/10/11 [Last Taken 05/07/18 ] Multivitamins [Multivitamin (*)] 1 tab PO DAILY 03/17/12 [Last Taken 05/07/18] Cholecalciferol Vit D3 [Vitamin D3 (*)] 1,000 units PO DAILY 04/18/17 [Last Taken 05/07/18] Levothyroxine [Synthroid 88 mcg (*)] 88 mcg PO DAILY06 04/18/17 [Last Taken 07/20] Venlafaxine Xr [Effexor Xr 37.5MG (*)] 37.5 mg PO BID 04/18/17 [Last Taken 05/07 09:00] EPINEPHrine [Epipen Jr 0.15 MG] 0.15 mg IM ONCE 10/10/17 [Last Taken Unknown] QUEtiapine FUMARATE [Seroquel 100 mg (*)] 100 mg PO BID@02/21/18 [Last Taken 05/07/18 09:00] Oxymetazoline HCl [Afrin Nasal [place] (OTC)] 2 spray EACHNARE DAILY 03/23/18 [ Last Taken 05/07/18] Aspirin [Aspirin 81mg (*)] 81 mg PO DAILY 05/07/18 [Last Taken 05/07/18] I have personally reviewed and updated: family history, medical history, social history, surgical history - Past Medical History dementia Additional medical history: VT. BPH. idiopathic anaphylaxis - Surgical History Reports: pacemaker/AICD - Family History Positive for: non-pertinent - Social History Smoking Status: Former smoker Additional social history: resides at [facility]. Review of Systems Review of Systems: ROS: 10pt was reviewed & negative except for what was stated in HPI & below Physical Exam Physical Exam: Temp Pulse Resp BP Pulse Ox 36.8 C 90 16 137/74 H 93 05/07/18 18:58 05/07/18 20:09 05/07/18 20:09 05/07/18 20:09 05/07/18 20:09 Constitutional: no apparent distress, chronically ill appearing Eyes: PERRL Ears, Nose, Mouth, Throat: moist mucous membranes Cardiovascular: regular rate and rhythym Respiratory: no respiratory distress, reduced air movement Gastrointestinal: soft, non-tender abdomen Genitourinary: No garcia in urethra Skin: warm, normal color Neurologic: No AAOx3 Psychiatric: interacting appropriately Lab Data & Imaging Review 05/07/18 18:50 05/07/18 18:50 WBC 9.42 10^3/uL (3.80-9.50) 05/07/18 18:50 RBC 4.10 10^6/uL (4.40-6.38) L 05/07/18 18:50 Hgb 11.9 g/dL (13.7-17.5) L 05/07/18 18:50 Hct 37.5 % (40.0-51.0) L 05/07/18 18:50 MCV 91.5 fL (81.5-99.8) 05/07/18 18:50 MCH 29.0 pg (27.9-34.1) 05/07/18 18:50 MCHC 31.7 g/dL (32.4-36.7) L 05/07/18 18:50 RDW 13.4 % (11.5-15.2) 05/07/18 18:50 Plt Count 272 10^3/uL (150-400) 05/07/18 18:50 MPV 9.3 fL (8.7-11.7) 05/07/18 18:50 Neut % (Auto) 75.8 % (39.3-74.2) H 05/07/18 18:50 Lymph % (Auto) 8.7 % (15.0-45.0) L 05/07/18 18:50 [place] % (Auto) 11.0 % (4.5-13.0) 05/07/18 18:50 Eos % (Auto) 3.5 % (0.6-7.6) 05/07/18 18:50 Baso % (Auto) 0.5 % (0.3-1.7) 05/07/18 18:50 Nucleat RBC Rel Count 0.0 % (0.0-0.2) 05/07/18 18:50 Absolute Neuts (auto) 7.13 10^3/uL (1.70-6.50) H 05/07/18 18:50 Absolute Lymphs (auto) 0.82 10^3/uL (1.00-3.00) L 05/07/18 18:50 Absolute Monos (auto) 1.04 10^3/uL (0.30-0.80) H 05/07/18 18:50 Absolute Eos (auto) 0.33 10^3/uL (0.03-0.40) 05/07/18 18:50 Absolute Basos (auto) 0.05 10^3/uL (0.02-0.10) 05/07/18 18:50 Absolute Nucleated RBC 0.00 10^3/uL (0-0.01) 05/07/18 18:50 Immature Gran % 0.5 % (0.0-1.1) 05/07/18 18:50 Immature Gran # 0.05 10^3/uL (0.00-0.10) 05/07/18 18:50 Sodium 135 mEq/L (135-145) 05/07/18 18:50 Potassium 4.5 mEq/L (3.5-5.2) 05/07/18 18:50 Chloride 103 mEq/L (97-110) 05/07/18 18:50 Carbon Dioxide 22 mEq/l (22-31) 05/07/18 18:50 Anion Gap 10 mEq/L (6-14) 05/07/18 18:50 BUN 24 mg/dL (7-23) H 05/07/18 18:50 Creatinine 1.4 mg/dL (0.7-1.3) H 05/07/18 18:50 Estimated GFR 48 05/07/18 18:50 Glucose 129 mg/dL (70-100) H 05/07/18 18:50 Calcium 8.5 mg/dL (8.5-10.4) 05/07/18 18:50 POC Troponin I 0.06 ng/mL (0.00-0.08) 05/07/18 19:38 NT-Pro-B Natriuret Pep 827 pg/mL (0-450) H 05/07/18 18:50 Assessment & Plan Assessment: Dyspnea on Exertion (Acute) - Having episodes of BELL - Hypoxic to 85% on RA upon EMS arrival - CXR on admission shows airway disease with possible superimposed PNA in RML and RLL - S/p Ceftriaxone and Azithromycin in ED, will continue for now - CXR also showed hyperexpansion with flattening of diaphragms - Will start Prednisone 40 mg qd as well as scheduled and PRN nebulizers - LE Edema present on exam, BNP elevated to 827, however no pulmonary edema seen on imaging, TTE from 2013 with normal EF - Also checking Flu and Respiratory PCR - Wean 02 as tolerated Pneumonia (Acute) - CXR showing possible PNA RML/RLL on admission - Afebrile with no leukocytosis - Will continue abx for now, procalcitonin ordered Chest Pain - reports patient was clutching L side of chest during episode - No hx of [place], CAD, does have hx of VT s/p AICD, denies any shocks - Initial Troponin and EKG without ischemic changes - Will order chest pain protocol with serial EKG and Troponins - Discussed with , if workup is positive she would not want invasive measures (LHC) - Continue home ASA 81 mg qd Hypothyroidism - Continue home synthroid BPH - Continue home Flomax FEN: Cardiac DVT PPx: SubQ Heparin Code: DNR Dispo: Admit to Observation
[2018-05-07] MEDS ORDERED: EPINEPHRINE 0.15 MG IM PRN (22:15)
[2018-05-07] MEDS: predniSONE 20 MG TAB PO SCH (23:42)
[2018-05-07] MEDS: HEPARIN 5,000 UNIT/0.5 ML INJ SC SCH (23:42)
[2018-05-08] MEDS: IPRATROPIUM/ALBUTEROL 3 ML DEYVIAL IH SCH ×2 (05:01→11:41)
[2018-05-08] MEDS ORDERED: LEVOTHYROXINE 88 MCG TAB PO SCH (06:00)
[2018-05-08] MEDS: HEPARIN 5,000 UNIT/0.5 ML INJ SC SCH (06:21)
[2018-05-08] MEDS: predniSONE 20 MG TAB PO SCH (07:56)
[2018-05-08] MEDS ORDERED: ASPIRIN 81 MG CHEWABLE TAB PO SCH (09:00)
[2018-05-08] MEDS ORDERED: OXYMETAZOLINE 30 ML NASAL SPRAY EACHNARE SCH (09:00)
[2018-05-08] MEDS ORDERED: CHOLECALCIFEROL VIT D3 1,000 UNITS TAB PO SCH (09:00)
[2018-05-08] MEDS ORDERED: AZITHROMYCIN IV 250 MG in NS 250 ML IV SCH (09:00)
[2018-05-08] MEDS ORDERED: VENLAFAXINE XR 37.5 MG CAP PO SCH (09:00)
[2018-05-08] MEDS ORDERED: TAMSULOSIN HCL 0.4 MG CAP PO SCH (09:00)
[2018-05-08] MEDS ORDERED: QUEtiapine FUMARATE 100 MG TAB PO SCH (10:00)
[2018-05-08 11:10] VITALS: BP 118/74
--- NOTE | 2018-05-08 12:12 | ASMTDCNOTE ---
Case Management Discharge Discharge Order Complete? Answers: Yes Patient to Obtain Answers: Other Notes: [facility] Medications Transportation Arranged Answers: Other Notes: [facility] will Pick (Date 05/08/2018 12:45 PM & Time) Case Management Transport Answers: Yes Notes: Face sheet Form Complete Family Notified Answers: Yes Notes: [facility] Discharge Comments Notes: Patient is discharging back to [facility] today. Transport was arranged with [employer] for 12:45 today.Juany Lawrence was notified. Discharge summaries Allscripted to [facility]. No further needs. Date Signed: 05/08/2018 12:12 PM Electronically Signed By:Jannet Emerson LCSW
--- NOTE | 2018-05-08 20:17 | GDS ---
[f rep st] DISCHARGE SUMMARY DISCHARGE DIAGNOSES: 1. Pneumonia. 2. Dyspnea on exertion. 3. Chest pain. 4. Hypothyroidism. PHYSICAL EXAM: GENERAL: The patient is alert. VITAL SIGNS: Afebrile at 36.6, pulse is 89, respira tory rate 22, blood pressure is 118/74, he is saturating 92% on room air. I have seen and evaluated the patient on the day of discharge. HOSPITAL COURSE: Patient is an 87-year-old male brought to the hospital secondary to complaints of s hortness of breath. He was evaluated and diagnosed with: 1. Pneumonia. Per chest x-ray the patient demonstrated possible right middle lobe and lower lobe pn eumonia on admission. He was treated with antibiotic therapy during this hospitalization. His sympt oms have significantly improved. He is on room air. 2. Dyspnea on exertion. This has resolved. The patient has returned to his baseline. 3. Chest pain. The patient denies any chest pain currently. Troponin was mildly elevated at the ti me of admission. However, his EKG was within normal limits and repeat troponin is trending down. Th e has indicated that she does not want any further workup or evaluation for this. We will jeffery nue his aspirin and he will be discharged home. DISPOSITION: The patient will be discharged to return to [facility] where he normally resides. The re are no pending studies. DISCHARGE MEDICATIONS: Please refer to EMR form. I have provided a prescription for prednisone as w ell as Levaquin every other day given the patient's respiratory complications. I have not discontinu ed the patient's previously prescribed home medications to the best of my knowledge. /[id number]/MODL
[2018-05-09] MEDS ORDERED: AZITHROMYCIN 250 MG TAB PO SCH (09:00)
--- NOTE | 2018-05-09 16:45 | CPEKG ---
Test Reason : OPEN Blood Pressure : / mmHG Vent. Rate : 084 BPM Atrial Rate : 083 BPM P-R Int : 198 ms QRS Dur : 084 ms QT Int : 380 ms P-R-T Axes : 049 -07 042 degrees QTc Int : 450 ms Sinus rhythm Atrial premature complex Low voltage, extremity and precordial leads Anteroseptal infarct, old Confirmed by Dillon Stovall ([id number]) on 05/09/2018 4:44:59 PM Referred By: Maxim Julien Confirmed By:Dillon Stovall
--- NOTE | 2018-05-16 11:43 | CPEKG ---
Test Reason : OPEN Blood Pressure : / mmHG Vent. Rate : 079 BPM Atrial Rate : 079 BPM P-R Int : 214 ms QRS Dur : 083 ms QT Int : 413 ms P-R-T Axes : 071 -09 021 degrees QTc Int : 474 ms Sinus rhythm Atrial premature complex Borderline prolonged VA interval Low voltage, extremity and precordial leads Anteroseptal infarct, old Confirmed by Williams Massey ([id number]) on 05/16/2018 11:43:26 AM Referred By: Maxim Julien Confirmed By:Williams Massey
== END 2018-05-08 12:58 ==
LOC: EDUNIT# → INTOOBSV 21:31 → F3E 23:09
PROVIDERS: ADMIT Internal Medicine; ATTEND Internal Medicine
DX: J18.9 Pneumonia, unspecified organism (principal); R06.09 Other forms of dyspnea; R09.02 Hypoxemia; R07.9 Chest pain, unspecified; E03.9 Hypothyroidism, unspecified; W19.XXXA Unspecified fall, initial encounter; Y92.129 Unspecified place in nursing home as the place of occurrence of the external cause; F03.90 Unspecified dementia, unspecified severity, without behavioral disturbance, psychotic disturbance, mood disturbance, and anxiety; I47.2 Ventricular tachycardia; N40.0 Benign prostatic hyperplasia without lower urinary tract symptoms; I10 Essential (primary) hypertension; Z79.82 Long term (current) use of aspirin; Z79.01 Long term (current) use of anticoagulants; Z87.891 Personal history of nicotine dependence; Z95.810 Presence of automatic (implantable) cardiac defibrillator; Z91.040 Latex allergy status; Z66 Do not resuscitate
CPT/HCPCS: 71046; 93005; 96365; 96372; 97161; 97165; 99285; G0378; J0456; J0696; J1644; J7512; 84484-ER

== ENCOUNTER → 2018-06-02 | Outpatient (CLI) | payer OTHER | LOC: FLAB 11:26 ==